=== PATIENT | female | born 1970 | race Caucasian/White ===

== ENCOUNTER 2023-12-10 12:17 | Inpatient (IN) ==
[2023-12-10 12:49] LABS: iSTAT Creatinine 0.8 mg/dl (0.6-1.3); iSTAT Hemoglobin 14.3 g/dl (12.0-16.0); iSTAT Ionized Calcium 1.09 mmol/l (1.12-1.32); iSTAT Potassium 3.8 mmol/L (3.3-5.0)
[2023-12-10 12:50] LABS: Basophils # (auto) 0.02 K/uL (0.00-0.20); Basophils % (auto) 0.2 %; Eosinophils # (auto) 0.01 K/uL (0.00-0.50); Eosinophils % (auto) 0.1 %; Hematocrit (blood only) 40.4 % (37.0-47.0); Hemoglobin 14.2 g/dl (12.0-16.0); Immature Granulocytes # (auto) 0.06 K/uL (0.01-0.20); Immature Granulocytes % (auto) 0.6 %; Lymphocytes # (auto) 2.09 K/uL (1.20-3.40); Lymphocytes % (auto) 22.1 %; Mean Corpuscular Hemoglobin 32.3 pg (25.0-34.0); Mean Corpuscular Hgb Conc 35.1 g/dL (32.0-36.0); Mean Platelet Volume 9.4 fL (9.4-12.4); Monocytes # (auto) 0.56 K/uL (0.11-0.59); Monocytes % (auto) 5.9 %; Neutrophils # (auto) 6.73 K/uL (1.40-6.50); Neutrophils % (auto) 71.1 %; Platelet Count 255 K/uL (130-400); RDW Coefficient of Variation 12.1 % (11.5-14.5); RDW Standard Deviation 40.9 fL (36.4-46.3); Red Blood Count 4.39 M/uL (4.20-5.40); White Blood Count 9.47 K/ul (4.8-10.8)
[2023-12-10 12:57] LABS: INR 0.9 (0.9-1.1); Partial Thromboplastin Ratio 0.8; Partial Thromboplastin Time 23 Seconds (21-31); Prothrombin Time 10.4 Seconds (9.0-12.0)
--- NOTE | 2023-12-10 13:05 | XRay Report ---
XR chest 1V portable HISTORY: 53 years-old Female Chest pain, nonspecific COMPARISON: None TECHNIQUE: AP view of the chest FINDINGS: Cardiomediastinal and hilar silhouettes are within normal limits. No pneumothorax, pleural effusion o r airspace consolidation. The bones appear grossly intact. IMPRESSION: No acute process. ACT 112: Negative or not required by law. The above report was generated using voice recognition software. It may contain grammatical, syntax o r spelling errors. Electronically signed by: Chandler Stark M.D. 12/10/2023 1:03 PM
[2023-12-10 13:13] LABS: Albumin Globulin Ratio 1.3 (0.9-2); Albumin Level 4.1 gm/dl (3.4-5.0); BUN Creatinine Ratio 27.7 (10-20); Bilirubin,Total 0.3 mg/dl (0.2-1.0); Calcium 9.1 mg/dl (8.6-10.3); Creatinine Clr Calc Pharmacy 82.6 ml/min; Est GFR (Non-African American) 81.1 ml/min; Globulin 3.1 gm/dl (2.5-4.0); Total Protein 7.2 gm/dl (6.0-8.3)
[2023-12-10] MEDS: HEPARIN SODIUM/DEXTROSE 25,000 UNITS/500 ML BAG IV SCH (13:18)
[2023-12-10] MEDS: HEPARIN SOD (PORCINE) 1000 UNIT/ML IV ONE (13:18)
[2023-12-10] MEDS ORDERED: HEPARIN SOD (PORCINE) 1000 UNIT/ML IV ONE (13:19)
[2023-12-10 13:20] LABS: Troponin I High Sensitivity 271.4 pg/ml (0-14)
[2023-12-10] MEDS: Heparin IV Adult Wt-Based Low-Dose w/ INITIAL Bolus Protocol IV STA (13:28)
[2023-12-10] MEDS ORDERED: STAT IV Infusion **Titration per Protocol STA (13:33)
--- NOTE | 2023-12-10 13:35 | History & Physical Report ---
Date of Service December 10, 2023 Assessment & Plan (1) NSTEMI (non-ST elevated myocardial infarction): (2) Dyslipidemia: (3) Lumbar radiculopathy: Plan This is a 51-year-old female with PMH of chronic low back pain who presents with chest pain starting earlier today. 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 NSTEMI Sudden onset CP at 10:30 AM with EKG changes in V1-V5 ST elevation that resolved after EMS gave aspirin and has not had recurrence of pain Repeat EKG in ED showing resolution of ST elevation, with age undetermined septal/anterior infarct pattern noted on follow-up serial EKGs Initial HS trop 270 -> 2,724 ED provider discussion with Dr. Walker who recommended IV heparin drip, nitro drip Discussed case with Dr. Lloyd, who evaluated patient in ED and read stat echo, revealing EF 25-30%, grade II diastolic dysfunction, no significant valvular disease Echo findings consistent with LAD territory injury versus Takotsubo syndrome, per discussion with Dr. Lloyd Continue aspirin, high intensity statin, IV heparin No beta pradeep as HR is already in the 60s, hold off on ACEi or ARB for now Transition from nitro drop to 0.5" Q6H Hold off on additional corticosteroids, adding PPI prophylaxis given recent prednisone Possible cardiac catheterization tomorrow, NPO after midnight Dyslipidemia Per chart review (patient denies knowledge of diagnosis in the past). Started on high dose statin as above Lumbar radiculopathy Continue prednisone 20mg as before. No additional steroids. Avoid nsaids while on IV heparin DVT Ppx: IV heparin Code status: FULL PCP: Yvette Dispo: Admitted to PCU Patient seen in collaboration with Dr. Babin. Please see addendum. I spent a total of 75 minutes coordinating, documenting, and providing care for this patient excluding time spent in the performance of separately billed services. History of Present Illness Chief Complaint: Chest pain Primary Care Provider: Mary Crawford MD This is a 51-year-old female with PMH of chronic low back pain who presents with chest pain starting earlier today. 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 Unsure how long the episode ended, but notes it did not completely resolve until 325 mg aspirin was given by EMS en route to hospital. Since arrival, pain has not recurred. Denies any personal known cardiac disease but notes it in her father and uncle. Long-term smoker over the past 35 years but consistently smoking 8 cigarettes a day. Not on any home medications besides a multivitamin and has been taking a lot of ibuprofen lately due to worsening back pain. Was started on prednisone 20 mg daily by her PCP 5 days ago. Chart review shows history of hyperlipidemia but patient denies it. Has never been on a statin. Denies any fever, chills, headache, chest pain currently, palpitations, shortness of breath, nausea, vomiting, abdominal pain, dysuria, diarrhea or constipation. Significant EKG changes noted with ST elevation in V1-V5 via picture provided from EMS, EKG improved after aspirin administration and by the time EKG was done in ED, ST elevations had resolved with presence of poor R wave progression consistent with undetermined septal/anterior infarct. Initial high-sensitivity troponin of 270 with repeat now pending. ER provider discussed with Dr. Walker, on-call for interventional cardiology, who recommends initiation of IV heparin drip as well as nitro drip. Dr. Lloyd to evaluate in ED, obtain echo and help determine level of care needed with plan for the afternoon now that patient is chest pain-free. Allergies Allergy/AdvReac Type Severity Reaction Status Date / Time tree and shrub pollen Allergy Unknown Verified 12/29/21 08:10 Home Medications Medication Instructions Recorded Confirmed Type ibuprofen 200 mg capsule 400 mg PO Q8H PRN pain/fever 12/29/21 12/10/23 History multivitamin 1 tab PO DAILY 12/29/21 12/10/23 History prednisone 20 mg tablet 20 mg PO UD 12/10/23 12/10/23 History Past Med/Surg History Medical History Seasonal allergies Lumbar radiculopathy Surgical History H/O: hysterectomy 2009 Family History Father Hypertension Mother Thyroid disease Other Heart disease Social History Smoking Status: Never smoker Tobacco Type: Cigarettes Cigarettes Per Day: 8; Second Hand Exposure: No; Do You Dip or Chew Tobacco: No; Tobacco Cessation Education Requested by Patient: No Hx Alcohol Use: No Hx Substance Use: No Preferred Language: [place]guill[place] Communication Ability: Effective 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 Physical Exam Physical Exam: General Appearance: WD/WN, vitals as above, NAD, sitting up in bed, pleasant, conversing easily Head: normocephalic, atraumatic Eyes: normal inspection, PERRL, conjunctivae normal, anicteric sclerae ENT: external ear and nose normal, oropharynx normal Neck: normal visual inspection, trachea midline, no thyromegaly Respiratory: normal respiratory effort, lungs clear to auscultation, no wheeze, rales, rhonchi. No accessory muscle use Cardiovascular: regular rate, rhythm, no murmur, normal peripheral pulses, no BLE edema. Vessels: no JVD Chest: normal inspection of chest Abdomen/GI: normal bowel sounds, soft, nontender, no hepatosplenomegaly Extremities/Musculoskeletal: no cyanosis or clubbing, extremities motor strength 5/5 Neurologic: PERRL, EOMI, accommodation nl, no face palsy, no dysarthria, CN's II-XI intact bilaterally and moves all extremities Psychiatric: A+Ox3, euthymic affect Skin: no rashes, normal color, warm/dry Results & Data Results & Data Vital Signs (Past 12 Hours) Vital Signs Temp Pulse Resp BP Pulse Ox O2 Del Method O2 Flow Rate 12/10/23 13:01 117/81 12/10/23 13:01 59 L 18 100 Room Air 12/10/23 13:00 61 17 98 12/10/23 12:48 57 L 12/10/23 12:34 100 Room Air 12/10/23 12:30 122/85 12/10/23 12:30 58 L 17 100 12/10/23 12:23 56 L 18 100 12/10/23 12:20 100 Room Air 0 12/10/23 12:20 36.6 C 61 17 122/85 100 Room Air Laboratory Results Short CBC 12/10/23 Range/Units 12:30 WBC 9.47 (4.8-10.8) K/ul Hgb 14.2 (12.0-16.0) g/dl Hct 40.4 (37.0-47.0) % Plt Count 255 (130-400) K/uL BMP 12/10/23 12:30 Sodium 134 L Potassium 4.0 Chloride 98 Carbon Dioxide 27 BUN 23 Creatinine 0.83 Glucose 124 H Calcium 9.1 Liver Function 12/10/23 Range/Units 12:30 Total Bilirubin 0.3 (0.2-1.0) mg/dl AST 22 (13-39) U/L ALT 26 (7-52) U/L Alkaline Phosphatase 68 (34-104) U/L Albumin 4.1 (3.4-5.0) gm/dl Diagnostic Findings Chest X-Ray 12/10/23 12:27 XR chest 1V portable HISTORY: 53 years-old Female Chest pain, nonspecific COMPARISON: None TECHNIQUE: AP view of the chest FINDINGS: Cardiomediastinal and hilar silhouettes are within normal limits. No pneumothorax, pleural effusion or airspace consolidation. The bones appear grossly intact. IMPRESSION: No acute process. ACT 112: Negative or not required by law. The above report was generated using voice recognition software. It may contain grammatical, syntax or spelling errors. Electronically signed by: Chandler Stark M.D. 12/10/2023 1:03 PM ECG Additional Comments: Significant EKG changes on initial noted with ST elevation in V1-V5 via picture provided from EMS, EKG improved after aspirin administration and by the time EKG was done in ED, ST elevations had resolved with presence of poor R wave progress ion consistent with undetermined septal/anterior infarct. Supervising Physician Co-Signing Physician Notes Pt was seen and examined by myself, Nora Babin MD on the day of service. Care was coordinated with Mohini Kruger PA-C. 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 Pain resolved at time of exam, she notes it went away after aspirin en route. EKG was initially suggestive of NH with ST elevation, trop elevation at 271 on arrival. EKG now with resolution of ST elevation AAOx3 on exam, no acute distress. RRR NSTEMI-stat echo, cardiology and interventional cardiology consults, appreciate recs. trend trops, interventional cardiology recommending nitro drip, consider ICU admission if nitro drip in use. Cardiac cath. Optimize risk factors- encourage smoking cessation, AM lipid panel, hgba1c. BP currently controlled. Hyperglycemia- glucose level 124, hgba1c r/o DM Otherwise as above. I spent a total [id number] coordinating, documenting, and providing care for this patient excluding time spent in the performance of separately billed services
[2023-12-10] MEDS ORDERED: NITROGLYCERIN/D5W 100MCG/ML 250 ML IV SCH (13:45)
--- NOTE | 2023-12-10 14:09 | Emergency Department Note ---
Impression & Plan NSTEMI (non-ST elevated myocardial infarction) ED Provider Note Provider: Gaetano Reeves MD DATE OF SERVICE: 12/10/2023 CHIEF COMPLAINT: Throat and chest and arm pain now resolved HISTORY OF PRESENT ILLNESS: Patient is a 53-year-old female quite healthy presenting here today via ambulance. Works at [employer]. While there developed some tightness of her throat and pain into her left arm and feeling faint. States she then began to feel tingling in all of her extremities and bit near syncopal but did not lose consciousness or fall. EMS activated. Upon BLS arrival received a dose of aspirin and symptoms resolved. Initial EKG completed around this time showed significant anterior ST segment elevations but these resolved and route here to the hospital. Discussion with the EMS team and route. Patient denies any symptoms upon arrival and states she feels fine and really just wanted to go back to work. Denies cardiac history. Significant family cardiac history is reported however. Denies difficulty breathing currently. Denies history of cardiac testing before. States she was told her triglycerides were little bit high but otherwise her cholesterol was fine. States she normally has somewhat lower blood pressure. Recently strained her upper back and has been on a steroid burst for the last several days. PAST MEDICAL HISTORY: As noted above MEDICATIONS: Reviewed currently on a prednisone burst FMH: History of cardiac disease in father side of the family SOCIAL HISTORY: Smoker, works at the [employer] PHYSICAL EXAM: GENERAL: alert and oriented in no acute distress on stretcher Head: normocephalic and atraumatic EYES: No injection, discharge or icterus. NECK: Trachea midline. ENT: Mucous membranes pink and moist. LUNGS: Airway patent. No retractions. Breath sounds clear with good air entry bilaterally. HEART: Regular rate and rhythm. No chest wall tenderness SKIN: Acyanotic, warm, dry, without rashes EXTREMITIES: Without swelling, tenderness or deformity NEUROLOGICAL: No focal deficits. No aphasia. No facial droop or slurred speech. Ambulatory. EK bpm sinus bradycardia. No PVC or PAC. No acute ST segment elevation or depression with a QTc of 372. CONTINUOUS CARDIAC MONITORING: was ordered and showed a heart rate of 50s to 60s bpm in normal sinus rhythm to sinus bradycardia Patient's laboratory studies and imaging reviewed. Differential includes Cardiac ischemia, aortic dissection, pulmonary embolism, pneumothorax, pneumonia, pericarditis, myocarditis, esophageal rupture, GERD, cholecystitis, pancreatitis, musculoskeletal, as well as other pathologies. IMPRESSION/MEDICAL DECISION MAKING: Patient well-appearing on arrival. EKG obtained here without significant abnormalities or STEMI. Reviewed prehospital EKG with significant anterior ST segment elevations that now have resolved and again the patient is now asymptomatic. Did discuss with interventional cardiology. Question if this was vasospasm. Not hypoxic here and again denying any symptoms. Doubt dissection. Blood work obtained. Mild troponin elevation upon arrival to 71. Already received full dose aspirin. Discussion with cardiology, heparin drip initiated. They also recommended some nitroglycerin which be trialed but will be cautious as she does report a history of some lower blood pressures and may not be able to tolerate this but likely again she is not experiencing any significant symptoms at this time. Discussed with the patient and recommendation for further cardiac evaluation and staying in the hospital and she was agreeable. Hospitalist team contacted. DIAGNOSIS: NSTEMI DISPOSITION: Hospitalist will evaluate Patient was agreeable with this plan. Critical Care I have personally spent 55 minutes of critical care time in the direct management of this patient. This includes bedside care, interpretation of diagnostic studies, and testing, discussion with consultants, patient, and family members, and other required patient management activities. These 55 minutes is in excess of all separately billable procedures. Past Med/Surg History Medical History Seasonal allergies Lumbar radiculopathy Surgical History H/O: hysterectomy 2009 Family History Father Hypertension Mother Thyroid disease Other Heart disease Social History Smoking Status: Never smoker Tobacco Type: Cigarettes Cigarettes Per Day: 8; Second Hand Exposure: No; Do You Dip or Chew Tobacco: No; Tobacco Cessation Education Requested by Patient: No Hx Alcohol Use: No Hx Substance Use: No Preferred Language: Thai Communication Ability: Effective Edm Operator Required: No Beliefs That Will Affect Care: None marital status: Single Current Living Situation: Spouse current occupational status: employed 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 How many Children do You have: 1 Other Information That Helps Us Care for You: No Feels Safe at Home: Yes Safety Concerns: Feels Safe At This Time Assistive Devices: None Allergies Allergies Allergy/AdvReac Type Severity Reaction Status Date / Time tree and shrub pollen Allergy Unknown Verified 12/29/21 08:10 Home Meds Home Medications Medication Instructions Recorded Confirmed ibuprofen 200 mg capsule 400 mg PO Q8H PRN pain/fever 12/29/21 12/10/23 multivitamin 1 tab PO DAILY 12/29/21 12/10/23 prednisone 20 mg tablet 20 mg PO UD 12/10/23 12/10/23 Results & Data (ED) Vital Signs Vital Signs - 24 hr 12/10/23 12:20 12/10/23 12:20 12/10/23 12:23 Temperature 36.6 C Temperature Source Oral Pulse Rate 61 56 L Pulse Rate [Apical] Pulse Rate from SpO2 Sensor 57 L Respiratory Rate 17 18 Respiratory Effort / Characteristics Non-Labored Spontaneous Respiratory Depth Normal Respiratory Pattern Regular Blood Pressure 122/85 Blood Pressure [Right Arm] Blood Pressure Mean 97 Blood Pressure Mean [Right Arm] Pulse Oximetry 100 100 100 Oxygen Delivery Method Room Air Room Air Oxygen Flow Rate 0 Sepsis Recent Fever Within 48 Hours No Sepsis New/Unexplained Change in Mental Status N/A Sepsis Action Taken by Nursing No Action Required 12/10/23 12:30 12/10/23 12:30 12/10/23 12:34 Temperature Temperature Source Pulse Rate 58 L Pulse Rate [Apical] Pulse Rate from SpO2 Sensor 58 L Respiratory Rate 17 Respiratory Effort / Characteristics Respiratory Depth Respiratory Pattern Blood Pressure 122/85 Blood Pressure [Right Arm] Blood Pressure Mean 90 Blood Pressure Mean [Right Arm] Pulse Oximetry 100 100 Oxygen Delivery Method Room Air Oxygen Flow Rate Sepsis Recent Fever Within 48 Hours Sepsis New/Unexplained Change in Mental Status Sepsis Action Taken by Nursing 12/10/23 12:48 12/10/23 13:00 12/10/23 13:01 Temperature Temperature Source Pulse Rate 57 L 61 59 L Pulse Rate [Apical] Pulse Rate from SpO2 Sensor 61 61 Respiratory Rate 17 18 Respiratory Effort / Characteristics Respiratory Depth Respiratory Pattern Blood Pressure Blood Pressure [Right Arm] Blood Pressure Mean Blood Pressure Mean [Right Arm] Pulse Oximetry 98 100 Oxygen Delivery Method Room Air Oxygen Flow Rate Sepsis Recent Fever Within 48 Hours Sepsis New/Unexplained Change in Mental Status Sepsis Action Taken by Nursing 12/10/23 13:01 12/10/23 14:32 Temperature Temperature Source Pulse Rate Pulse Rate [Apical] 53 L Pulse Rate from SpO2 Sensor Respiratory Rate 20 Respiratory Effort / Characteristics Non-Labored Respiratory Depth Normal Respiratory Pattern Blood Pressure 117/81 Blood Pressure [Right Arm] 131/80 Blood Pressure Mean 91 Blood Pressure Mean [Right Arm] 97 Pulse Oximetry 99 Oxygen Delivery Method Room Air Oxygen Flow Rate Sepsis Recent Fever Within 48 Hours Sepsis New/Unexplained Change in Mental Status Sepsis Action Taken by Nursing Laboratory Data 12/10/23 12:30 12/10/23 12:30 Lab Results 12/10/23 12/10/23 12/10/23 Range/Units 12:30 12:36 14:23 WBC 9.47 (4.8-10.8) K/ul RBC 4.39 (4.20-5.40) M/uL Hgb 14.2 (12.0-16.0) g/dl POC Hgb 14.3 (12.0-16.0) g/dl Hct 40.4 (37.0-47.0) % POC Hct 42 (37-47) % MCV 92.0 (80.0-100.0) fL MCH 32.3 (25.0-34.0) pg MCHC 35.1 (32.0-36.0) g/dL RDW Std Deviation 40.9 (36.4-46.3) fL RDW Coeff of John 12.1 (11.5-14.5) % Plt Count 255 (130-400) K/uL MPV 9.4 (9.4-12.4) fL Immature Gran % (Auto) 0.6 % Neut % (Auto) 71.1 % Lymph % (Auto) 22.1 % [place] % (Auto) 5.9 % Eos % (Auto) 0.1 % Baso % (Auto) 0.2 % Neut # (Auto) 6.73 H (1.40-6.50) K/uL Lymph # (Auto) 2.09 (1.20-3.40) K/uL [place] # (Auto) 0.56 (0.11-0.59) K/uL Eos # (Auto) 0.01 (0.00-0.50) K/uL Baso # (Auto) 0.02 (0.00-0.20) K/uL Immature Gran # (Auto) 0.06 (0.01-0.20) K/uL PT 10.4 (9.0-12.0) Seconds INR 0.9 (0.9-1.1) APTT 23 (21-31) Seconds PTT Ratio 0.8 POC Sodium 136 (135-144) mmol/L Sodium 134 L (136-145) mmol/L POC Potassium 3.8 (3.3-5.0) mmol/L Potassium 4.0 (3.5-5.1) mmol/L POC Chloride 98 L (101-112) mmol/L Chloride 98 (98-107) mmol/L Carbon Dioxide 27 (21-32) mmol/L POC Total CO2 28 (24-31) mmol/L Anion Gap 9 (3-11) POC Anion Gap 15.0 L (16-25) mmol/L POC BUN 23 H (7-18) mg/dl BUN 23 (6-23) mg/dl Creatinine 0.83 (0.6-1.2) mg/dl POC Creatinine 0.8 (0.6-1.3) mg/dl Est Cr Clr Drug Dosing 82.6 ml/min Est GFR ( Amer) 94.0 ml/min Est GFR (Non-Af Amer) 81.1 ml/min BUN/Creatinine Ratio 27.7 H (10-20) Glucose 124 H (70-99(Fasting)) mg/dl POC Glucose (other) 127 H (70-99) mg/dl Calcium 9.1 (8.6-10.3) mg/dl POC Ioniz Calcium Chasidy 1.09 L (1.12-1.32) mmol/l Total Bilirubin 0.3 (0.2-1.0) mg/dl AST 22 (13-39) U/L ALT 26 (7-52) U/L Alkaline Phosphatase 68 (34-104) U/L Troponin I High Sens 271.4 H* 2724.2 H* D (0-14) pg/ml Total Protein 7.2 (6.0-8.3) gm/dl Albumin 4.1 (3.4-5.0) gm/dl Globulin 3.1 (2.5-4.0) gm/dl Albumin/Globulin Ratio 1.3 (0.9-2) Lipase 18 (11-82) U/L Administered Medications Acetaminophen (Acetaminophen 500 Mg Tab) 1,000 mg PO Q8H PRN PRN Reason: Pain or Fever Stop: 01/09/24 17:19 Last Admin: 12/10/23 17:34 Dose: 1,000 mg Documented By: NERY Heparin Sodium/Dextrose (Heparin Sodium/Dextrose) 25,000 units in 500 mls @ 16 mls/hr IV .Q24H [facility]; Protocol Stop: 12/11/23 04:00 Last Admin: 12/10/23 13:18 Dose: 800 units/hr, 16 mls/hr Documented By: ARPIT Co-signed By: NERY Pantoprazole Sodium 40 mg/ (Syringe) 10 mls @ 5 mls/min IV Q12H [facility] Stop: 01/09/24 16:59 Last Admin: 12/10/23 17:21 Dose: 5 mls/min Documented By: NERY Nitroglycerin (Nitroglycerin 2% Ointment 30gm Tube) 0.5 inch EXT Q6H [facility] Stop: 01/09/24 15:29 Last Admin: 12/10/23 15:51 Dose: 0.5 inch Documented By: NERY Discontinued Medications Heparin Sodium (Porcine) (Heparin Sod (Porcine) 1000 Unit/Ml) 4,000 units IV NOW ONE Stop: 12/10/23 13:20 Last Admin: 12/10/23 13:18 Dose: 4,000 units Documented By: ARPIT Co-signed By: NERY Heparin Sodium/Dextrose (Heparin Iv Adult Wt-Based Low-Dose W/ Initial Bolus Protocol) 1 each IV NOW STA; Protocol Stop: 12/10/23 13:05 Last Admin: 12/10/23 13:28 Dose: Not Given Documented By: ARPIT Nitroglycerin/Dextrose (Nitroglycerin/D5w 100 Mcg/Ml) 250 mls @ 12 mls/hr IV .[id number] [facility]; Protocol Stop: 01/09/24 14:14 Last Admin: 12/10/23 15:23 Dose: Not Given Documented By: NERY Lidocaine (Lidocaine 5% 1 Patch) 1 patch TD NOW STA Stop: 12/10/23 17:21 Last Admin: 12/10/23 17:34 Dose: 1 patch Documented By: NERY Imaging Data Radiologist's Impression: Chest X-Ray 12/10/23 12:27 XR chest 1V portable HISTORY: 53 years-old Female Chest pain, nonspecific COMPARISON: None TECHNIQUE: AP view of the chest FINDINGS: Cardiomediastinal and hilar silhouettes are within normal limits. No pneumothorax, pleural effusion or airspace consolidation. The bones appear grossly intact. IMPRESSION: No acute process. ACT 112: Negative or not required by law. The above report was generated using voice recognition software. It may contain grammatical, syntax or spelling errors. Electronically signed by: Chandler Stark M.D. 12/10/2023 1:03 PM Discharge Plan Visit Data Chief Complaint: Chest Pain ED Provider: Gaetano Reeves Discharge Problem: NSTEMI (non-ST elevated myocardial infarction) Patient Disposition: Admitted As Inpatient Discharge Instructions Interventions: ED Discharge Assessment Last Done: 12/10/23 16:56
[2023-12-10] MEDS: NITROGLYCERIN/D5W 100MCG/ML 250 ML IV SCH (15:23)
[2023-12-10] MEDS: NITROGLYCERIN 2% OINTMENT 30GM TUBE EXT SCH (15:51)
--- NOTE | 2023-12-10 15:58 | Cardiology Consultation ---
Date of Consultation December 10, 2023 Assessment & Plan (1) NSTEMI (non-ST elevated myocardial infarction): (2) Dyslipidemia: (3) Lumbar radiculopathy: Plan Bedside echocardiogram performed 12/10/2023 at the time of my assessment and interpreted independently with summary as follows: The study was technically adequate. There is normal left ventricular wall thickness. There is a large sized apical, septal, and anteroseptal wall motion abnormality with hypokinesis to akinesis of the segments.There is relative sparing of the basal segments that contract normally. Left ventricular systolic function is severely reduced. The LV Ejection Fraction = 25-30%. There is no LV apical mural thrombus. Diastolic dysfunction, Grade II (pseudonormalization pattern). There is no significant valvular disease. Patient presents with transient chest discomfort, symptoms less than 1 hour, initially was found to have anterior/lateral ST segment elevation upon arrival of EMS. Symptoms resolved spontaneously after receiving aspirin and reassurance. ST segment elevation has resolved, with age undetermined septal/anterior infarct pattern noted on follow-up serial EKG tracings. Patient currently hemodynamically stable, no recurrence of chest discomfort. Is now on unfractionated heparin. Initial high-sensitivity troponin minimally elevated at 271.4 PG per mL, and is trended up to 2,724.2 PG per mL. Bedside echocardiogram consistent with LAD territory injury versus catecholamine induced cardiomyopathy pattern (Takotsubo syndrome). At this time we will continue medical therapy including aspirin, unfractionated heparin, high intensity statin therapy. Start topical nitroglycerin 0.5 inches to anterior chest wall every 6 hours. Hold off on additional corticosteroids. Consider GI prophylaxis with a proton pump inhibitor given recent prednisone exposure. No beta pradeep as heart rate is already in the 60s. Hold off on angiotensin receptor pradeep or JOSE LUIS inhibitor for now. Hold off on emergent cardiac catheterization for now given improvement in her EKG and symptoms, however anticipate need for invasive coronary angiography for definitive evaluation during this hospital stay. Repeat EKG as needed for symptoms and again in am. Advance diet now. NPO after midnight. Case discussed with Dr. Reeves of emergency medicine, Dr Walker of interventional cardiology, and Mohini Kruger PA-C of the [facility] service for the purpose of coordination of care. I spent a total of 65 minutes on the date of service in preparation, delivery, and documentation of the care provided to this patient, excluding any time spent in the performance of separately billed services. Lorena Lloyd DO History of Present Illness History of Present Illness Monserrat Andujar is a 53 year old female seen in cardiology follow up per the request of Mohini Kruger PA-C for the evaluation of chest pain and an abnormal EKG. Patient is seen in the emergency department, room B11B. Her Morales accompanies her at the bedside. Patient states that her recent history dates back to last week when she had recurrence of her usual low back pain that radiates down the buttocks bila terally into her legs consistent with her previous history of lumbar radiculopathy. She had previously had an MRI of the lumbar spine as an outpatient in Jan, 2022 revealing diffuse disc bulge at the L5-S1 level. She states that she had an acute exacerbation of her lumbar radiculopathy after lifting her 65 pound dog. She was placed on a tapering course of prednisone prescribed by primary care on 12/04/2023 and she notes interval improvement over the last 4 days or so. This morning she states that she was back to her usual state of health. When her back is not bothering her she typically walks a distance of 2 miles. Today she walked a distance of a mile and felt well. She had breakfast and got ready to go to work. 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 She states that between 10:30 AM and 10:45 AM she had abrupt onset of discomfort in her neck that subsequently progressed to a numbness in her left arm and then chest pain and bilateral arm discomfort. She also had a transient sensation of numbness in her feet. She describes feeling progressively anxious when she had the symptoms. EMS was summoned and initial prehospital EKG was performed at 11:43 AM that revealed sinus bradycardia at [address] segment elevation in the anterior precordial leads V1 to V5 as well as lead I and aVL with reciprocal ST segment depression in the inferior leads III and aVF. The patient states that she received aspirin 81 mg x 4 tablets which she chewed just after the EKG was performed and she felt better instantaneously. Repeat prehospital EKG performed at 1150 reveals resolution of the previously noted ST segment elevation and depression with findings of age-indeterminate septal infarct pattern with Q waves in lead V2 and poor R wave progression in leads V3 V4 but otherwise EKG had normalized. The patient has had serial repeat tracings performed including a formal tracing performed in the hospital at 12:20 PM with no residual ST segment elevation. At the time my assessment the patient was completely comfortable in the emergency department. Repeat tracing performed at 1545 reveals ongoing sinus bradycardia with resolution of the ST segment elevation, ongoing poor R wave progression noted consistent with age undetermined septal/anterior infarct, and patient has now developed T wave changes in lead V3. Family History: She states her father is alive at the age of 70 with a history of congestive heart failure. 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 [employer] She smokes 7 to 8 cigarettes/day Allergies Allergy/AdvReac Type Severity Reaction Status Date / Time tree and shrub pollen Allergy Unknown Verified 12/29/21 08:10 Home Medications Medication Instructions Recorded Confirmed Type ibuprofen 200 mg capsule 400 mg PO Q8H PRN pain/fever 12/29/21 12/10/23 History multivitamin 1 tab PO DAILY 12/29/21 12/10/23 History prednisone 20 mg tablet 20 mg PO UD 12/10/23 12/10/23 History Patient History Medical History Seasonal allergies Lumbar radiculopathy Surgical History H/O: hysterectomy 2008 Family History Father Hypertension Mother Thyroid disease Other Heart disease Social History Smoking Status: Current every day smoker Tobacco Type: Cigarettes Cigarettes Per Day: 8; Hx Alcohol Use: Yes Alcohol Intake Frequency: Monthly or Less Hx Substance Use: No marital status: Single Current Living Situation: Significant Other current occupational status: employed 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 How many Children do You have: 1 Feels Safe at Home: Yes Review of Systems Review of Systems: All systems reviewed & are unremarkable except as noted in HPI & below Physical Exam Constitutional: WD/WN, vitals as above Respiratory: normal respiratory effort, lungs clear to auscultation Cardiovascular: RRR, no murmur, no edema Gastrointestinal (Abdomen): normal bowel sounds, soft, nontender, no hepatosplenomegaly Neurologic: PERRL, EOMI, accommodation nl, no face palsy, no dysarthria Results & Data Vital Signs (Past 12 Hours) Vital Signs Temp Pulse Pulse Resp BP BP Pulse Ox 12/10/23 14:32 53 L 20 131/80 99 12/10/23 13:01 117/81 12/10/23 13:01 59 L 18 100 12/10/23 13:00 61 17 98 12/10/23 12:48 57 L 12/10/23 12:34 100 12/10/23 12:30 122/85 12/10/23 12:30 58 L 17 100 12/10/23 12:23 56 L 18 100 12/10/23 12:20 100 12/10/23 12:20 36.6 C 61 17 122/85 100 O2 Del Method O2 Flow Rate 12/10/23 14:32 Room Air 12/10/23 13:01 12/10/23 13:01 Room Air 12/10/23 13:00 12/10/23 12:48 12/10/23 12:34 Room Air 12/10/23 12:30 12/10/23 12:30 12/10/23 12:23 12/10/23 12:20 Room Air 0 12/10/23 12:20 Room Air Laboratory Results Cardiac Enzymes 12/10/23 12/10/23 Range/Units 12:30 14:23 AST 22 (13-39) U/L Troponin I High Sens 271.4 H* 2724.2 H* D (0-14) pg/ml Coagulation 12/10/23 Range/Units 12:30 PT 10.4 (9.0-12.0) Seconds APTT 23 (21-31) Seconds CBC 12/10/23 Range/Units 12:30 WBC 9.47 (4.8-10.8) K/ul RBC 4.39 (4.20-5.40) M/uL Hgb 14.2 (12.0-16.0) g/dl Hct 40.4 (37.0-47.0) % Plt Count 255 (130-400) K/uL Neut # (Auto) 6.73 H (1.40-6.50) K/uL Lymph # (Auto) 2.09 (1.20-3.40) K/uL [place] # (Auto) 0.56 (0.11-0.59) K/uL Eos # (Auto) 0.01 (0.00-0.50) K/uL Baso # (Auto) 0.02 (0.00-0.20) K/uL Comprehensive Metabolic Panel 12/10/23 Range/Units 12:30 Sodium 134 L (136-145) mmol/L Potassium 4.0 (3.5-5.1) mmol/L Chloride 98 (98-107) mmol/L Carbon Dioxide 27 (21-32) mmol/L BUN 23 (6-23) mg/dl Creatinine 0.83 (0.6-1.2) mg/dl Glucose 124 H (70-99(Fasting)) mg/dl Calcium 9.1 (8.6-10.3) mg/dl AST 22 (13-39) U/L ALT 26 (7-52) U/L Alkaline Phosphatase 68 (34-104) U/L Total Protein 7.2 (6.0-8.3) gm/dl Albumin 4.1 (3.4-5.0) gm/dl Intake and Output 12/10/23 12/10/23 12/10/23 06:59 14:59 22:59 Other: Weight 79.4 kg Weight Measurement Method Built in [facility] Patient Weight 12/11/23 06:59 Weight 79.4 kg Diagnostic Findings Per review of her outpatient chart the patient has not had any previous echocardiogram or EKG studies prior to today. A fasting lipid panel was performed on 07/24/2023: Total cholesterol 252 Triglycerides 146 HDL 55 LDL cholesterol 168 Fasting glucose 98 mg/dL at that time
[2023-12-10] MEDS ORDERED: ONDANSETRON INJ 2 MG/ML 2 ML VIAL IV PRN (16:58)
[2023-12-10] MEDS ORDERED: POLYETHYLENE (MIRALAX) 17 GM PACK PO PRN (16:58)
[2023-12-10] MEDS: PANTOprazole 40 MG in SYRINGE 0 ML IV SCH (17:21)
[2023-12-10] MEDS: ACETAMINOPHEN 500 MG TAB PO PRN (17:34)
[2023-12-10] MEDS: LIDOCAINE 5% 1 PATCH TD STA (17:34)
--- NOTE | 2023-12-10 18:23 | Communication Note ---
Date of Service: December 10, 2023 Hold heparin at 4 AM on 12/11/2023 for anticipated cardiac catheterization. Patient currently scheduled to be the second case on the morning of 12/11/2023. Mayra Lloyd DO
--- OUTSIDE RECORDS SUMMARY | 2023-12-10 19:38 | External Medical Summary | Summary of Care ---
Author Name Unknown Organization [facility] Address [address] [place] [address] Phone [phone] Care Team Providers Care Automation Consultant Name Role Phone Mary Crawford MD Primary Care Provide r Reason for Visit * Reason Comments Outpatient Testing Encounter Details Date Type Department Care Team (Late st Contact Info) Description 07/24/2023 7:30 AM EST Laboratory Laboratory [address] [place] [phone] [place] [id number] [employer]social Other*[id number]; Lipid screening; Need for hepatitis C screening test; Encounter for screening examination for impaired glucose regulation and diabetes mellitus Allergies No known active allergiesdocumented as of this encounter (statuses as of 07/24/2023) Medications Medication Sig Dispensed Refills Start Date End Date Status Multiple Vitamin (MULTIVITAMINS) Capsule Take 1 Capsule by mouth in the morning. 0 02/18/2015 Active documented as of this encounter (statuses as of 07/24/2023) Active Problems Problem Noted Date Diagnosed Date Lumbar radiculitis 04/16/2018 Herniated nucleus pulposus, L5-S1, right 018 documented as of this encounter (statuses as of 07/24/2023) Resolved Problems Problem Noted Date Diagnosed Date Resolved Date Routine medical exam 12/01/2011 019 documented as of this encounter (statuses as of 07/24/2023) Immunizations Name Administration Dates Next Due TDAP (age 10 and older)(Boostrix) 06/25/2020 documented as of this encounter Social History Tobacco Use Types Packs/Day Years Used Date Smoking Tobacco: Never Smokeless Tobacco: Never Alcohol Use Standard Drinks/Week Comments Yes 0 (1 standard drink = 0.6 oz pur e alcohol) rare PHQ-2 Answer Date Recorded PHQ Adult Total Score 0 06/01/2023 Hunger Vital Sign Answer Date Recorded Within the past 12 months, y ou worried that your food would run out before you got the money to buy more. Never true 06/01/20 23 Within the past 12 months, t he food you bought just didn't last and you didn't have money to get more. Never true 06/01/2023 Sex and Gender Information Value Date Recorded Sex Assigned at Female 05/25/2022 7:53 PM EDT Gender Identity Female 05/25/2022 7:53 PM EDT Sexual Orientation Straight 05/25/2022 7: 53 PM EDT Job Start Date Occupation Industry Not on file Not on file Not on file documented as of this encounter Plan of Treatment Upcoming Encounters Date Type Department Care Team (Latest Contact Info) Description 10/22/2023 9:30 AM EST Hospital Encounter [facility]O [facility], Endoscopy Room [facility] [address] [place] [phone] Leidy Shaw, DO [address] [place] [phone] 10/22/2023 9:30 AM EST - 10/22/2023 10:00 AM EST Surgery ENDO [facility], Endoscopy Room [facility] [address] [place] [phone] Leidy Shaw, DO [address] [place] [id number] COLONOSCOPY FLEXIBLE PROXIMAL DIAGNOSTIC 06/13/2024 8:20 AM EDT Office Visit Family [address] [phone] Mary Crawford MD [address] [place] [address] [place] [id number] 07/07/2024 9:00 AM EDT Imaging Radiology [address] [place] [id number] Pending Results Name Type Priority Associated Diagnoses Date /Time MYCODE SUBSEQUENT ADULT Lab Routine [employer] Other*[id number] 07/24/2023 7:31 AM EST LIPID PANEL WITH DIRECT LDL IF TG IS HIGH Lab Routine Lipid screening 07/24/2023 7:31 AM EST HEPATITIS C ANTIBODY SCREEN WITH PROGRESSION TO HEPATITIS C RNA QUANTITATIVE Lab Routine Need for hepatitis C screening test 07/24/2023 7:31 AM EST GLUCOSE, FASTING PLASMA Lab Routine Encounter for screening examination for impaired glucose regulation and diabetes mellitus 07/24/2023 7:31 AM EST MYCODE SST1 Lab Routine [employer] Other*[id number] 07/24/2023 7:31 AM EST MYCODE SST2 Lab Routine [employer] Other*[id number] 07/24/2023 7:31 AM EST HEPATITIS C ANTIBODY Lab Routine Need for hepatitis C screening test 07/24/2023 7:31 AM EST HEPATITIS C RNA ADD ON Lab Routine Need for hepatitis C screening test 07/24/2023 7:31 AM EST Scheduled Procedures Name Priority Associated Diagnoses Date/Ti me COLONOSCOPY FLEXIBLE PROXIMAL DIAGNOSTIC Special screening for malignant neoplasms, colon 10/22/2023 9:30 AM EST Health Maintenance Due Date Last Done Comments Hepatitis B (1 of 3 - 3-dose series) 1970 COVID-19 Vaccine (#1) 05/25/1972 Hepatitis C Screening 11/22/1989 Cologuard 11/22/2016 Colonoscopy 11/22/2016 Colorectal Cancer Screening 11/22/2016 Fecal Occult Blood Test 11/22/2016 Sigmoidoscopy 11/22/2016 Zoster Vaccines (1 of 2) 11/22/2021 Influenza Vaccine (FLU shot) (#1) 2023 Diabetes Screening 05/20/2023 05/20/2020, 0 04/18/2017, 04/02/2015, Additional history exists Depression Screening 06/01/2024 06/01/2023 Mammogram 06/25/2024 06/25/2023, 10/0 02/2022, 06/08/2021, Additional history exists Lipid Panel 08/05/2026 08/05/2021, 05/11, 04/02/2015, Additional history exists DTaP,Tdap,and Td Vaccines (2 - Td or Tdap) 06/25/2030 06/25/2020 GARDASIL-HPV IMMUNIZATION SERIES Aged Out No longer eligible based on patient's age to complete this topic MENINGOCOCCAL (MENACTRA/MENVEO) Aged Out No longer eligible based on patient's age to complete this topic Pneumococcal Vaccine: Pediatrics (0 to 5 Years) and At-Risk Patients (6 to 64 Years) Aged Out No longer eligible based on patient's age to complete this topic documented as of this encounter Medical Devices Not on filedocumented as of this encounter Visit Diagnoses Diagnosis MyCode [employer] Other*[id number] Lipid screening Screening for lipoid disorders Need for hepatitis C screening test Special screening examination for other specified viral diseases Encounter for screening examination for impaired glucose regulation and diabetes mellitus Special screening for malignant neoplasms, colon documented in this encounter Care Teams Automation Consultant Relationship Specialty Start Date End Date Mary Crawford MD PCP - General Family Medicine 02/22/16 documented as of this encounter
--- OUTSIDE RECORDS SUMMARY | 2023-12-10 19:38 | External Medical Summary | Summary of Care ---
Author Name Unknown Organization [facility] Address [address] [place] [address] Phone [phone] Care Team Providers Care Benefits Manager Name Role Phone Mary Crawford MD Primary Care Provide r Reason for Visit * Auth/Cert Specialty Diagnoses / Procedures Referred By Emanuel cam Referred To Contact Diagnoses Special screening for malignant neoplasms, colon Special screening for malignant neoplasms, colon [Z12.11] Procedures COLONOSCOPY, DIAGNOSTIC (RECTUM) COLONOSCOPY FLEXIBLE PROXIMAL DIAGNOSTIC Referral ID Status Reason Start Date Expiration Date Visits Re quested Visits Authorized [id number] Encounter Details Date Type Department Care Team (Latest Contact Info) Description 10/22/2023 8:48 AM EST - 10/22/2023 10:25 AM [facility] Hospital Encounter ENDO [facility], Endoscopy Room [facility] [address] [place] [phone] Hayde Carrasco MD [address] [facility] [place] [address] Colonoscopy Discharge Disposition: Home - Self Care Allergies No known active allergiesdocumented as of this encounter (statuses as of 10/22/2023) Medications Medication Sig Dispensed Refills Start Date End Date Status Multiple Vitamin (MULTIVITAMINS) Capsule Take 1 Capsule by mouth in the morning. 0 02/18/2015 Active documented as of this encounter (statuses as of 10/22/2023) Active Problems Problem Noted Date Diagnosed Date Hyperlipidemia LDL goal <100 07/24/2023 Overview: LDL 168 Lumbar radiculitis 04/16/2018 Herniated nucleus pulposus, L5-S1, right 018 documented as of this encounter (statuses as of 10/22/2023) Resolved Problems Problem Noted Date Diagnosed Date Resolved Date Routine medical exam 12/01/2011 019 documented as of this encounter (statuses as of 10/22/2023) Immunizations Name Administration Dates Next Due TDAP [...] on file documented as of this encounter Last Filed Vital Signs Vital Sign Reading Time Taken Comments Blood Pressure 112/68 10/22/2023 10:15 AM EST Pulse 65 10/22/2023 10:15 AM EST Temperature 36.7 C (98 F) 10/22/2023 10:15 AM EST Respiratory Rate 18 10/22/2023 10:15 AM EST Oxygen Saturation 98% 10/22/2023 10:15 AM EST Inhaled Oxygen Concentration - - Weight 73.9 kg (163 lb) 10/11/2023 11:21 AM EST Height 165.1 cm (5' 5") 10/11/2023 11:21 AM EST Body Mass Index 27.12 10/11/2023 11:21 AM EST documented in this encounter H&P Notes * Hayde Carrasco MD - 10/22/2023 9:12 AM EST Endoscopy Pre-Procedure Assessment Name: Monserrat Andujar Date: 10/22/2023 Time: 9:12 AM Procedure(s): Colonoscopy; with Indication(s) of average risk screening Endoscopy Pre-Procedure Assessment: Prior to the procedure, the patient was identified. The patient's history, medications and allergies were reviewed as per the Anesthesia Assessment. The patient is competent. The risks and benefits of the proposed procedure and the planned sedation were discussed with the patient. All questions were answered and informed consent for the procedure was obtained. BP 93/79 | Pulse 60 | Temp 36.4 C (97.6 F) (Tympanic) | Resp 16 | Ht 1.651 m (5' 5") | Wt 73.9 kg (163 lb) | SpO2 100% | BMI 27.12 kg/m | BSA 1.84 m Review of patient's allergies indicates: No Known Allergies Prior to Admission medications Medication Sig Last Dose Discont. Sulfamethoxazole-Trimethoprim 800-160 MG Oral Tablet (Bactrim DS) Take 1 Tablet by mouth in the morning and 1 Tablet before bedtime. Do all this for 3 days. Until gone. Multiple Vitamin (MULTIVITAMINS) Capsule Take 1 Capsule by mouth in the morning. Physical Exam: Mental Status Examination: alert and oriented. Airway Examination: normal oropharyngeal airway and neck mobility. Respiratory Examination: clear to auscultation. CV Examination: Regular rate and rythm, no murmurs. ASA Grade: II - A patient with mild systemic disease. After reviewing the risks and benefits, the patient was deemed in satisfactory condition to undergothe procedure. The anesthesia plan was to use sedation. Patient was explained in detail regarding risks, benefits, limitations and alternatives of the above endoscopic procedure. Risks of intravenous sedation used for procedure were also explained. Risks include, but not limited to perforation, bleeding, infection, respiratory distress, cardiac arrest and . Risk of acute pancreatitis and necrosis if ERCP is done. Patient is also aware about the possibility of missed lesion. Patient's questions were answered. The patient verbalized understandingthe information and agreed to undergo the procedure. Discussed with the patient that he/she is at an explicit higher risk for complications in comparison to other patients Hayde Carrasco MD 10/22/2023 documented in this encounter Procedure Notes * Mary Crawford MD - 10/22/2023 9:13 AM ESTAssociated Order(s): COLONOSCOPY [facility] Patient Name: Monserrat Andujar Procedure Date: 10/22/2023 9:13 AM Date of : 1970 Admit Type: Outpatient Note Status: Finalized Date of : 1970 Admit Type: Outpatient Age: 52 Room: Endo 3 Gender: Female Note Status: Finalized Procedure: Colonoscopy Indications: Screening for colorectal malignant neoplasm Providers: Hayde Carrasco MD (Doctor), Yovani Edmond RN Referring MD: Mary Crawford MD (Referring MD) Medicines: Propofol per Anesthesia Complications: No immediate complications. Procedure: Pre-Anesthesia Assessment: - Prior to the procedure, a History and Physical was performed, and patient medications, allergies and sensitivities were reviewed. The patient's tolerance of previous anesthesia was reviewed. - The risks and benefits of the procedure and the sedation options and risks were discussed with the patient. All questions were answered and informed consent was obtained. - Patient identification and proposed procedure were verified prior to the procedure by the physician and the nurse. The procedure was verified in the procedure room. - Pre-procedure physical examination revealed no contraindications to sedation. After I obtained informed consent, the scope was passed under direct vision. All instruments were visually inspected immediately before and after removal from the patient to ensure they are fully intact. Throughout the procedure, the patient's blood pressure, pulse, and oxygen saturations were monitored continuously. The [id number] Colonoscope ([id number]) was introduced through the anus and advanced to the terminal ileum. The colonoscopy was performed without difficulty. The patient tolerated the procedure well. The quality of the bowel preparation was good. The terminal ileum, ileocecal valve, appendiceal orifice, and rectum were photographed. Findings & Specimens: The perianal and digital rectal examinations were normal. The terminal ileum appeared normal. A 6 mm polyp was found in the ascending colon. The polyp was sessile. The polyp was removed with a cold snare. Resection and retrieval were complete. Verification of patient identification for the specimen was done by the physician and nurse using the patient's name and date. The pathology specimenwas placed into Bottle A. A 6 mm polyp was found in the descending colon. The polyp was sessile. The polyp was removed with a cold snare. Resection and retrieval were complete. The pathology specimen was placed into Bottle B. Non-bleeding internal hemorrhoids were found during retroflexion. The hemorrhoids were small. Impression: - The examined portion of the ileum was normal. - One 6 mm polyp in the ascending colon, removed with a cold snare. Resected and retrieved. - One 6 mm polyp in the descending colon, removed with a cold snare. Resected and retrieved. - Non-bleeding internal hemorrhoids. Recommendation: - Discharge patient to home. - Await pathology results. - Repeat colonoscopy in 5 years for surveillance. - Return to referring physician. Hayde Carrasco MD 10/22/2023 9:54:17 AM This report has been signed electronically. documented in this encounter Nursing Notes * Ashleigh Abraham RN - 10/22/2023 10:21 AM EST Comfortable, at the bedside Patient is alert, pain free, and tolerating po fluids prior to discharge. Patient has been visited by Dr. Carrasco. Patient has received and demonstrates understanding of discharge instructions. Patient ambulates to private auto accompanied by endo staff. * Yovani Edmond RN - 10/22/2023 9:55 AM EST See anesthesia record for medication administered during procedure. Yovani Edmond RN Specimen(s) and location(s) verified with physician post procedure 9:55 AM Yovani Edmond RN Pre cleaning of scope at the bedside started by emanations analysis technician. Mid abdominal pressure given per Dr. Carrasco to assist with scope advancement. Pt tolerated well * Vinay Torres RN - 10/22/2023 9:02 AM EST Patient does not meet criteria for testing. s/p hysterectomy. * Vinay Torres RN - 10/22/2023 9:01 AM EST The following pt discharge instructions reviewed with pt prior to prodedure: No driving today. No alcohol today. No signing of legal documents. Rest as much as possible today and can return to normal activities tomorrow. No operating any heavy equipment today. Diet as tolerated. Pt verbalized understanding. documented in this encounter Plan of Treatment Upcoming Encounters Date Type Department Care Team (Late st Contact Info) Description 06/13/2024 8:20 AM EDT Office Visit Family Medicine [address] [place] [phone] Mary Crawford MD [address] [place] [address] [place] [address] 07/07/2024 9:00 AM EDT Imaging Radiology [address] [place] [address] Pending Results Name Type Priority Associated Diagnoses Date /Time SURGICAL PATHOLOGY Pathology Routine Special screening for malignant neoplasms, colon 10/22/2023 9:56 AM EST Scheduled Orders Name Type Priority Associated Diagnoses Orde r Schedule SURGICAL PATHOLOGY Pathology Routine Special screening for malignant neoplasms, colon Release Upon Ordering for 1 Occurrences starting 10/22/2023, 1 completed Scheduled Procedures Name Priority Associated Diagnoses Date/Ti me COLONOSCOPY FLEXIBLE PROXIMAL DIAGNOSTIC Special screening for malignant neoplasms, colon 10/22/2023 9:28 AM EST Health Maintenance Due Date Last Done Comments Hepatitis B (1 of 3 - 3-dose series) 1970 COVID-19 Vaccine (#1) 05/25/1972 Cologuard 11/22/2016 Fecal Occult Blood Test 11/22/2016 Sigmoidoscopy 11/22/2016 Zoster Vaccines (1 of 2) 11/22/2021 Influenza Vaccine (FLU shot) (#1) 2023 Depression Screening 06/01/2024 06/01/2023 Mammogram 06/25/2024 06/25/2023, 10/0 02/2022, 06/08/2021, Additional history exists Diabetes Screening 07/24/2026 07/24/2023, 0 05/20/2020, 04/18/2017, Additional history exists Lipid Panel 07/24/2028 07/24/2023, 1102/2021, 05/20/2020, Additional history exists DTaP,Tdap,and Td Vaccines (2 - Td or Tdap) 06/25/2030 06/25/2020 Colonoscopy 10/22/2033 10/22/2023 Colorectal Cancer Screening 10/22/2033 GARDASIL-HPV IMMUNIZATION SERIES Aged Out No longer [...] Not on filedocumented as of this encounter Procedures Procedure Name Priority Date/Time Associated Diagnosis Comments COLONOSCOPY 10/22/2023 9:13 AM EST documented in this encounter Results * COLONOSCOPY (10/22/2023 9:13 AM EST) 10/22/2023 9:13 AM EST Narrative Procedure Note Mary Crawford MD - 10/22/2023 9:13 AM EST [facility] Patient Name: Monserrat Andujar Procedure Date: 10/22/2023 9:13 AM Date of : 1970 Admit Type: Outpatient Note Status:Finalized Date of : 1970 Admit Type: Outpatient Age: 52 Room: [facility] 3 Gender: Female Note Status: Finalized Procedure: Colonoscopy Indications: Screening for colorectal malignant neoplasm Providers: Hayde Carrasco MD (Doctor), Yovani Edmond RN Referring MD: Mary Crawford MD (Referring MD) Medicines: Propofol per Anesthesia Complications: No immediate complications. Procedure: Pre-Anesthesia Assessment: - Prior to the procedure, a History and Physicalwas performed, and patient medications, allergies and sensitivities werereviewed. The patient's tolerance of previous anesthesia was reviewed. - The risks and benefits of the procedure and thesedation options and risks were discussed with the patient. All questions wereanswered and informed consent was obtained. - Patient identification and proposed procedurewere verified prior to the procedure by the physician and the nurse. The procedure wasverified in the procedure room. - Pre-procedure physical examination revealed nocontraindications to sedation. After I obtained informed consent, the scope waspassed under direct vision. All instruments were visually inspected immediatelybefore and after removal from the patient to ensure they are fully intact. Throughout the procedure, the patient's bloodpressure, pulse, and oxygen saturations were monitored continuously. The [id number] ([id number]) was introduced through the anus and advanced to the terminalileum. The colonoscopy was performed without difficulty. The patient tolerated theprocedure well. The quality of the bowel preparation was good. The terminal ileum,ileocecal valve, appendiceal orifice, and rectum were photographed. Findings & Specimens: The perianal and digital rectal examinations were normal. The terminal ileum appeared normal. A 6 mm polyp was found in the ascending colon. The polyp was sessile.The polyp was removed with a cold snare. Resection and retrieval were complete. Verification of patientidentification for the specimen was done by the physician and nurse using the patient's name andbirth date. The pathology specimen was placed into Bottle A. A 6 mm polyp was found in the descending colon. The polyp wassessile. The polyp was removed with a cold snare. Resection and retrieval were complete. The pathologyspecimen was placed into Bottle B. Non-bleeding internal hemorrhoids were found during retroflexion. Thehemorrhoids were small. Impression: - The examined portion of the ileum was normal. - One 6 mm polyp in the ascending colon, removedwith a cold snare. Resected and retrieved. - One 6 mm polyp in the descending colon, removedwith a cold snare. Resected and retrieved. - Non-bleeding internal hemorrhoids. Recommendation: - Discharge patient to home. - Await pathology results. - Repeat colonoscopy in 5 years for surveillance. - Return to referring physician. Hayde Carrasco MD 10/22/2023 9:54:17 AM This report has been signed electronically. Mary Crawford MD [facility] documented in this encounter Visit Diagnoses Diagnosis Special screening for malignant neoplasms, colon documented in this encounter Administered Medications Inactive Administered Medications - up to 3 most recent administrations Medication Order MAR Action Action Date Dose Rate Site isolyte-S pH 7.4 infusion Intravenous, at 100 mL/hr, Plasma-LYTE 148, isolyte-S, and isolyte-S pH 7.4 are considered equivalent - including for MAR barcode scanning., CONTINUOUS, Starting on Sun10/22/23 at 0945, Until Sun10/22/23 at 1457, Pre-Op Restarted 10/22/2023 9:51 AM EST Continue from Pre-Op 10/22/2023 9:23 AM EST 100 mL/hr New Bag 10/22/2023 9:18 AM EST 100 mL/hr documented in this encounter Active and Recently Administered Medications Times are shown in EST. Continuous Medication Order 10/20/2023 10/21/2023 10/22/2023 isolyte-S pH 7.4 infusion Intravenous, at 100 mL/hr, Plasma-LYTE 148, isolyte-S, and isolyte-S pH 7.4 are considered equivalent - including for MAR barcode scanning., CONTINUOUS, Starting on Sun10/22/23 at 0945, Until Sun10/22/23 at 1457, Pre-Op 0918 (New Bag - Prov ider: Vinay Torres RN)0923 (Continue from Pre-Op - Provider: Joseline Wilkins CRNA)0950 (Paused - Provider: Joseline Wilkins CRNA - Comment: Switch to gravity)0951 (Restarted - Provider: Joseline Wilkins CRNA) documented in this encounter Care Teams Benefits Manager Relationship Specialty Start Date End Date Mary Crawford MD [address] [place] [address] [place] [address] PCP - General Family Medicine 08/08/23 documented as of this encounter
--- OUTSIDE RECORDS SUMMARY | 2023-12-10 19:38 | External Medical Summary ---
Author Name Unknown Address Unknown Organization K01:[facility] [place] [address] [place] [address] Laboratory Report Ordering Provider Test Date Status JAMARCUS CAIN 07/24/2023 07:31:24 Final Observation Date Value Abnormality Reference (Units ) Status MYCODE SPECIMEN-SST 07/24/2023 07:31:24 Freezing of extracted DNA, whole blood and/or serum. Final Performing Location [facility] - [address] [place] [address]
--- OUTSIDE RECORDS SUMMARY | 2023-12-10 19:38 | External Medical Summary | Summary of Care ---
Author Name Unknown Organization [facility] Address [address] [place] [address] Phone [phone] Care Team Providers Care Oven Tender Name Role Phone Mary Crawford MD Primary Care Provide r Reason for Visit * Reason Onset Date Comments Advice 08/06/2023 Encounter Details Date Type Department Care Team (Late st Contact Info) Description 08/06/2023 Telephone Family Medicine [address] [phone] Mary Crawford MD [address] [place] [address] [place] [phone] Advice Allergies No known active allergiesdocumented as of this encounter (statuses as of 08/27/2023) Medications Medication Sig Dispensed Refills Start Date End Date Status Multiple Vitamin (MULTIVITAMINS) Capsule Take 1 Capsule by mouth in the morning. 0 02/18/2015 Active documented as of this encounter (statuses as of 08/27/2023) Active Problems Problem Noted Date Diagnosed Date Hyperlipidemia LDL goal <100 07/24/2023 Overview: LDL 168 Lumbar radiculitis 04/16/2018 Herniated nucleus pulposus, L5-S1, right 018 documented as of this encounter (statuses as of 08/27/2023) Resolved Problems Problem Noted Date Diagnosed Date Resolved Date Routine medical exam 12/01/2011 019 documented as of this encounter (statuses as of 08/27/2023) Immunizations Name Administration Dates Next Due TDAP [...] on file documented as of this encounter Miscellaneous Notes * Telephone Encounter - Radha Griffith LPN - 08/08/2023 10:43 AM EST This was taken care of in a [employer] message. * Telephone Encounter - Dorota Plasencia [facility] - 08/06/2023 12:08 PM EST No Appointments Available Patient declined appointments?: Yes What Visit Type is needed? Other poss uti If Acute Visit Type is needed, were surrounding clinics offered to patient (Yes/No)? N/A Was patient offered appointments with other available providers (Yes/No)? N/A See Call Details? (Yes or No): Yes Pt sts may have a possible UTI, declined appt would like something prescribed documented in this encounter Plan of Treatment Upcoming Encounters Date Type Department Care Team (Latest Contact Info) Description 10/22/2023 9:30 AM EST Hospital Encounter ENDO [facility], Endoscopy Room [facility] [address] [place] [phone] Leidy Shaw, DO [address] [place] [address] 10/22/2023 9:30 AM EST - 10/22/2023 10:00 AM EST Surgery ENDO [facility], Endoscopy Room [facility] [address] [place] [phone] Leidy Shaw, DO [address] [place] [address] COLONOSCOPY FLEXIBLE PROXIMAL DIAGNOSTIC 06/13/2024 8:20 AM EDT Office Visit Family Medicine [address] [place] [phone] Mary Crawford MD [address] [place] [address] [place] [address] 07/07/2024 9:00 AM EDT Imaging Radiology [address] [place] [address] Scheduled Procedures Name Priority Associated Diagnoses Date/Ti me COLONOSCOPY FLEXIBLE PROXIMAL DIAGNOSTIC Special screening for malignant neoplasms, colon 10/22/2023 9:30 AM EST Health Maintenance Due Date Last Done Comments Hepatitis B (1 of 3 - 3-dose series) 1970 COVID-19 Vaccine (#1) 05/25/1972 Cologuard 11/22/2016 Colonoscopy 11/22/2016 Colorectal Cancer Screening 11/22/2016 Fecal Occult Blood Test 11/22/2016 Sigmoidoscopy 11/22/2016 Zoster Vaccines (1 of 2) 11/22/2021 Influenza Vaccine (FLU shot) (#1) 2023 Depression Screening 06/01/2024 06/01/2023 Mammogram 06/25/2024 06/25/2023, 10/0 02/2022, 06/08/2021, Additional history exists Diabetes Screening 07/24/2026 07/24/2023, 0 05/20/2020, 04/18/2017, Additional history exists Lipid Panel 07/24/2028 07/24/2023, 07/12, 05/20/2020, Additional history exists DTaP,Tdap,and Td Vaccines [...] Not on filedocumented as of this encounter Care Teams Oven Tender Relationship Specialty Start Date End Date Mary Crawford MD [address] [place] [address] [place] [address] PCP - General Family Medicine 08/08/23 documented as of this encounter
--- OUTSIDE RECORDS SUMMARY | 2023-12-10 19:38 | External Medical Summary | Summary of Care ---
Author Name Unknown Organization [facility] Address [address] [place] [address] Phone [phone] Care Team Providers Care Delivery Assistant Name Role Phone Mary Crawford MD Primary Care Provide r Reason for Visit * Reason Onset Date Comments Patient Instructions 10/11/2023 colonoscopy Encounter Details Date Type Department Care Team (Late st Contact Info) Description 10/11/2023 Telephone OR [facility], Operating Room [facility] [address] [place] [phone] Rosa Akins, RN Patient Instructions (colonoscopy) Allergies No known active allergiesdocumented as of this encounter (statuses as of 10/11/2023) Medications Medication Sig Dispensed Refills Start Date End Date Status Multiple Vitamin (MULTIVITAMINS) Capsule Take 1 Capsule by mouth in the morning. 0 02/18/2015 Active documented as of this encounter (statuses as of 10/11/2023) Active Problems Problem Noted Date Diagnosed Date Hyperlipidemia LDL goal <100 07/24/2023 Overview: LDL 168 Lumbar radiculitis 04/16/2018 Herniated nucleus pulposus, L5-S1, right 018 documented as of this encounter (statuses as of 10/11/2023) Resolved Problems Problem Noted Date Diagnosed Date Resolved Date Routine medical exam 12/01/2011 019 documented as of this encounter (statuses as of 10/11/2023) Immunizations Name Administration Dates Next Due TDAP [...] Care Team (Latest Contact Info) Description 10/22/2023 9:45 AM EST Hospital Encounter ENDO [facility], Endoscopy Room [facility] [address] [place] [phone] Hayde Carrasco MD [address] [place] [address] 10/22/2023 9:45 AM EST - 10/22/2023 10:15 AM EST Surgery ENDO [facility], Endoscopy Room [facility] [address] [place] [phone] Hayde Carrasco MD [address] [place] [address] COLONOSCOPY FLEXIBLE PROXIMAL DIAGNOSTIC 06/13/2024 8:20 AM EDT Office Visit Family Medicine [address] [place] [phone] Mary Crawford MD [address] [place] [address] [place] [address] 07/07/2024 9:00 AM EDT Imaging Radiology [address] [place] [phone] Scheduled Procedures Name Priority Associated Diagnoses Date/Ti me COLONOSCOPY FLEXIBLE PROXIMAL DIAGNOSTIC Special screening for malignant neoplasms, colon 10/22/2023 9:45 AM EST Health Maintenance Due Date Last Done Comments Hepatitis B (1 of 3 - 3-dose series) 1970 COVID-19 Vaccine (#1) 05/25/1972 Cologuard 11/22/2016 Colonoscopy 11/22/2016 Colorectal Cancer Screening 11/22/2016 Fecal Occult Blood Test 11/22/2016 Sigmoidoscopy 11/22/2016 Zoster Vaccines (1 of 2) 11/22/2021 Influenza Vaccine (FLU shot) (#1) 2023 Depression Screening 06/01/2024 06/01/2023 Mammogram 06/25/2024 06/25/2023, 02/2022, 06/08/2021, Additional history exists Diabetes Screening [...] filedocumented as of this encounter Care Teams Delivery Assistant Relationship Specialty Start Date End Date Mary Crawford MD [address] [place] [address] [place] [phone] PCP - General Family Medicine 08/08/23 documented as of this encounter
--- OUTSIDE RECORDS SUMMARY | 2023-12-10 19:38 | External Medical Summary ---
Author Name Unknown Address Unknown Organization [id number]:[facility] [place] [address] [place] [address] Laboratory Report Ordering Provider Test Date Status KATHLEEN SERRANO 08/08/2023 15:55:35 Final Observation Date Value Abnormality Reference (Units ) Status Bacteria identified in Specimen by Culture 08/08/2023 15:55:35 [id number]^PROTEUS MIRABILIS Abnormal Final >100,000 colonies/mL Proteus mirabilis Performing Location [facility] [place] [address] [place] [address] Ordering Provider Test Date Status KATHLEEN SERRANO 08/08/2023 15:55:35 Final Observation Date Value Abnormality Reference (Units ) Status Ampicillin 08/08/2023 15:55:35 <=2 Susceptible Final Cefazolin 08/08/2023 15:55:35 <=4 Susceptible Final Cefepime susceptibility 08/08/2023 15:55:35 <=1 Susceptible Final Ceftriaxone suceptibility 08/08/2023 15:55:35 <=1 Susceptible Final Ciprofloxacin 08/08/2023 15:55:35 <=0.25 Susceptible Final Due to serious side effects, the FDA has advised against using Ciprofloxacin to treat uncomplicated UTIs and respiratory tract infections unless there are no alternative treatment options. Gentamicin susceptibility 08/08/2023 15:55:35 <=1 Susc eptible Final Piperacillin + Tazobactamsusceptibility 08/08/2023 15:55:35 <=4 Susceptible Final TMP-SMZ susceptibility 08/08/2023 15:55:35 <=20 Suscept ible Final Test: Culture, Urine, Quanti tative
Specimen Source: Urine, Clean Catch
Specimen Type: Urine
Specimen Date: 08/08/2023 3:55 PM
Result Date: 08/10/2023 1:46 PM
Result Status: Final result
Abnormal: Yes
Resulting Lab: [facility]
[address] [facility] [address]

CULTURE

>100,000 colonies/mL Proteus mirabilis (Abnormal)

SUSCEPTIBILITY

Proteus mirabilis
METHOD MICROBROTH DILUTIONS

AMPICILLIN <=2 Susceptible
CEFAZOLIN <=4 Susceptible
CEFEPIME <=1 Susceptible
CEFTRIAXONE <=1 Susceptible
CIPROFLOXACIN <=0.25 Susceptible [1]
GENTAMICIN <=1 Susceptible
PIPERACILLIN TAZOBACTAM <=4 Susceptible
TRIMETH/SULFAMETHOXAZOLE <=20 Susceptible

[1] Due to serious side effects, the FDA has advised against using
Ciprofloxacin to treat uncomplicated UTIs and respiratory tract infections
unless there are no alternative treatment options.

null Performing Location [facility] [place] [address] [facility] [address] [facility] [address]
--- OUTSIDE RECORDS SUMMARY | 2023-12-10 19:38 | External Medical Summary ---
Author Name Unknown Address Unknown Organization [id number]:LABORATORY [facility] [place] - [address] [facility] [address] Laboratory Report Ordering Provider Test Date Status KATHLEEN SERRANO 08/08/2023 15:55:35 Final Observation Date Value Abnormality Reference (Units ) Status Color of Urine by Auto 08/08/2023 15:55:35 Colorless Colorless, Light Yellow, Yellow, Dark Yellow Final Clarity, Urine 08/08/2023 15:55:35 Clear Clear Final Glucose [Mass/volume] in Urine by Automated test strip 08/08/2023 15:55:35 Negative Negative (mg/dL) Final Bilirubin.total [Presence] in Urine by Automated test strip 08/08/2023 15:55:35 Negative Negative Final Ketones [Mass/volume] in Urine by Automated test strip 08/08/2023 15:55:35 Negative Negative (mg/dL) Final Specific gravity, Urine 08/08/2023 15:55:35 1.009 1.003-1.030 Final Hemoglobin [Presence] in Urine by Automated test strip 08/08/2023 15:55:35 Large Abnormal Negative Final pH, Urine 08/08/2023 15:55:35 6.5 5.0-7.5 (Units) Final Protein [Mass/volume] in Urine by Automated test strip 08/08/2023 15:55:35 Trace Abnormal Negative (mg/dL) Final Urobilinogen [Mass/volume] in Urine by Automated test strip 08/08/2023 15:55:35 Normal Normal (mg/dL) Final Nitrite [Presence] in Urine by Automated test strip 08/08/2023 15:55:35 Negative Negative Final Leukocyte esterase [Presence] in Urine by Automated test strip 08/08/2023 15:55:35 Small Abnormal Negative Final RBC, Urine 08/08/2023 15:55:35 0-2 0-2 (/HPF) Final WBC, Urine 08/08/2023 15:55:35 20-29 Abnormal 0-2 (/HPF) Final Bacteria [#/area] in Urine sediment by Microscopy high power field 08/08/2023 15:55:35 0-25 0-25 (/HPF) Final Performing Location LABORATORY [facility] [place] - [facility] [address] [facility] [address]
--- OUTSIDE RECORDS SUMMARY | 2023-12-10 19:38 | External Medical Summary ---
Author Name Unknown Address Unknown Organization K01:LABORATORY [facility] - [address] [place] [address] Laboratory Report Ordering Provider Test Date Status ROSMERY CHACON 07/24/2023 07:31:24 Final Observation Date Value Abnormality Reference (Units ) Status Hep C Ab 07/24/2023 07:31:24 Negative Negative Final Further HCV quantitative kehinde ting not performed per protocol. Performing Location [facility] - [address] [place] [address]
--- OUTSIDE RECORDS SUMMARY | 2023-12-10 19:38 | External Medical Summary ---
Author Name Unknown Address Unknown Organization K01:[facility] [address] [facility] [place] [address] Laboratory Report Ordering Provider Test Date Status ROSMERY CHACON 07/24/2023 07:31:24 Final Observation Date Value Abnormality Reference (Units ) Status Triglyceride 07/24/2023 07:31:24 146 <=174 ( mg/dL) Final Triglyceride Reference Range s (mg/dL):
<150 Acceptable
150-174 Borderline high
175-499 High
>=500 Very high Cholesterol 07/24/2023 07:31:24 252 Above high normal <200 (mg/dL) Final Total Cholesterol Reference Ranges (mg/dL):
<200 Desirable
200-239 Borderline high
>=240 High HDL 07/24/2023 07:31:24 55 >49 (mg/dL ) Final HDL Cholesterol Reference Ra nges (mg/dL):
>=60 High (Desirable)
<50 Low (Undesirable) For Females
<40 Low (Undesirable) For Males NON-HDL CHOLESTEROL 07/24/2023 07:31:24 197 Above high normal <=159 (mg/dL) Final Non-HDL Cholesterol Referenc e Range (mg/dL):
<100 Target level for high risk ASCVD patient
<130 Optimal for general population
130-159 Near optimal for general population
160-189 Borderline High
190-219 High
>=220 Very High LDL, (calculated) 07/24/2023 07:31:24 168 Above high n ormal <=129 (mg/dL) Final LDL Cholesterol Reference Ra nges (mg/dL):
<70 Target level for high risk ASCVD patient
<100 Optimal for general population
100-129 Near optimal for general population
130-159 Borderline high
160-189 High
>=190 Very high Performing Location LABORATORY [facility] [place] - [address] [facility] [address]
--- OUTSIDE RECORDS SUMMARY | 2023-12-10 19:38 | External Medical Summary | Summary of Care ---
Author Name Unknown Organization [facility] Address [address] [place] [address] Phone [phone] Care Team Providers Care Medical Claims Specialist Name Role Phone Mary Crawford MD Primary Care Provide r Encounter Details Date Type Department Care Team (Late st Contact Info) Description 08/27/2023 Orders Only Outcomes Research Department [address] [place] [address] Nanda Farr CHRA MyCode Research Other*[id number] Allergies No known active allergiesdocumented as of [...] 10/22/2023 9:30 AM EST [facility] [address] [place] [phone] Leidy Shaw, DO [address] [place] [address] 10/22/2023 9:30 AM EST - 10/22/2023 10:00 AM EST Surgery ENDO [facility], Endoscopy Room [facility] [address] [place] [phone] Leidy Shaw, DO [address] [place] [address] COLONOSCOPY FLEXIBLE PROXIMAL DIAGNOSTIC 06/13/2024 8:20 AM EDT Office Visit Family Medicine [facility] [place] [phone] Mary Crawford MD [address] [place] [address] [place] [phone] 07/07/2024 9:00 AM EDT Imaging Radiology [address] [place] [address] Scheduled Orders Name Type Priority Associated Diagnoses Orde r Schedule MYCODE SUBSEQUENT ADULT Lab Routine MyCode Research Other*[id number] Every 6 Months for 2 Occurrences starting 08/27/2023 until 09/15/2024 Scheduled Procedures Name Priority Associated Diagnoses Date/Ti [...] this encounter Visit Diagnoses Diagnosis MyCode Research Other*[id number] Special screening for malignant neoplasms, colon documented in this encounter Care Teams Medical Claims Specialist Relationship Specialty Start Date End Date Mary Crawford MD [address] [place] [address] [place] [address] PCP - General Family Medicine 08/08/23 documented as of this encounter
--- OUTSIDE RECORDS SUMMARY | 2023-12-10 19:38 | External Medical Summary ---
Author Name Unknown Address Unknown Organization K01:[place] [facility] [place] [address] [place] [address] Laboratory Report Ordering Provider Test Date Status ROSMERY CHACON 07/24/2023 07:31:24 Final Based on guidelines from [place] [employer]:
70-99 mg/dL Normal
100-125 mg/dL Pre-diabetes
>125 mg/dL Diabetes, diagnosis requires two abnormal diabetes diagnostic test results Observation Date Value Abnormality Reference (Units ) Status Fasting glucose [Moles/volume] in Serum or Plasma 07/24/2023 07:31:24 98 70-99 (mg/dL) Final Performing Location [facility] [facility] [place] [address] [place] [address]
--- OUTSIDE RECORDS SUMMARY | 2023-12-10 19:38 | External Medical Summary | Summary of Care ---
Author Name Unknown Organization [facility] Address [address] [place] [address] Phone [phone] Care Team Providers Care Loom Inspector Name Role Phone Mary Crawford MD Primary Care Provide r Reason for Visit * Reason Comments Outpatient Testing Encounter Details Date Type Department Care Team (Late st Contact Info) Description 08/08/2023 4:00 PM EST Laboratory Laboratory [address] [place] [phone] [address] [place] [address] Dysuria Allergies No known active allergiesdocumented as of this encounter (statuses as of 08/08/2023) Medications Medication Sig Dispensed Refills Start Date End Date Status Multiple Vitamin (MULTIVITAMINS) Capsule Take 1 Capsule by mouth in the morning. 0 02/18/2015 Active Sulfamethoxazole-Tri methoprim 800-160 MG Oral Tablet (Bactrim DS) Take 1 Tablet by mouth in the morning and 1 Tablet before bedtime. Do all this for 3 days. Until gone. 6 Tablet 0 08/08/2023 08/11/2023 Active documented as of this encounter (statuses as of 08/08/2023) Active Problems Problem Noted Date Diagnosed Date Hyperlipidemia LDL goal <100 07/24/2023 Overview: LDL 168 Lumbar radiculitis 04/16/2018 Herniated nucleus pulposus, L5-S1, right 018 documented as of this encounter (statuses as of 08/08/2023) Resolved Problems Problem Noted Date Diagnosed Date Resolved Date Routine medical exam 12/01/2011 019 documented as of this encounter (statuses as of 08/08/2023) Immunizations Name Administration Dates Next Due TDAP [...] EST Hospital Encounter [facility], Endoscopy Room [facility] [address] [place] [phone] Leidy Shaw, DO [address] [place] [address] 10/22/2023 9:30 AM EST - 10/22/2023 10:00 AM EST Surgery [facility], Endoscopy Room [facility] [address] [place] [phone] Leidy Shaw, DO [address] [place] [address] COLONOSCOPY FLEXIBLE PROXIMAL DIAGNOSTIC 06/13/2024 8:20 AM EDT Office Visit Family Medicine [address] [place] [phone] Mary Crawford MD [address] [place] [address] [place] [address] 07/07/2024 9:00 AM EDT Imaging Radiology [address] [place] [address] Pending Results Name Type Priority Associated Diagnoses Date /Time URINALYSIS, REFLEX TO MICROSCOPIC Lab Routine Dysuria 08/08/2023 3:55 PM EST Scheduled Procedures Name Priority Associated Diagnoses [...] Depression Screening 06/01/2024 06/01/2023 Mammogram 06/25/2024 06/25/2023, 1002/2022, 06/08/2021, Additional history exists Diabetes Screening 07/24/2026 [...] as of this encounter Visit Diagnoses Diagnosis Dysuria Special screening for malignant neoplasms, colon documented in this encounter Care Teams Loom Inspector Relationship Specialty Start Date End Date Mary Crawford MD [address] [place] [address] [place] [phone] PCP - General Family Medicine 08/08/23 documented as of this encounter
--- OUTSIDE RECORDS SUMMARY | 2023-12-10 19:38 | External Medical Summary ---
Author Name Unknown Address Unknown Organization K01:[facility] [place] [address] [place] [address] Laboratory Report Ordering Provider Test Date Status JAMARCUS CAIN 07/24/2023 07:31:24 Final Observation Date Value Abnormality Reference (Units ) Status MYCODE SPECIMEN-SST 07/24/2023 07:31:24 Freezing of extracted DNA, whole blood and/or serum. Final Performing Location [facility]ORY [facility] - [address] [place] [address]
[2023-12-10 20:11] LABS: ANTI-Xa, UFH(UnfractionatedHep 0.67 IU/ml (0.3-0.7)
[2023-12-10] MEDS: ATORVASTATIN 40 MG TAB PO SCH (21:31)
[2023-12-11 06:24] LABS: Hematocrit (blood only) 42.9 % (37.0-47.0); Hemoglobin 14.9 g/dl (12.0-16.0); Mean Corpuscular Hemoglobin 32.1 pg (25.0-34.0); Mean Corpuscular Hgb Conc 34.7 g/dL (32.0-36.0); Mean Corpuscular Volume 92.5 fL (80.0-100.0); Mean Platelet Volume 9.3 fL (9.4-12.4); Platelet Count 256 K/uL (130-400); RDW Coefficient of Variation 12.2 % (11.5-14.5); RDW Standard Deviation 41.8 fL (36.4-46.3); Red Blood Count 4.64 M/uL (4.20-5.40); White Blood Count 10.17 K/ul (4.8-10.8)
[2023-12-11 06:41] LABS: ANTI-Xa, UFH(UnfractionatedHep < 0.10 IU/ml (0.3-0.7)
[2023-12-11 06:46] LABS: Cholesterol 239 mg/dl (0-200); HDL Cholesterol 59 mg/dl; Triglycerides 424 mg/dl (0-150)
[2023-12-11 06:48] LABS: Chol HDL Ratio 4.1 (0-5)
[2023-12-11 06:55] LABS: BUN Creatinine Ratio 21.3 (10-20); Calcium 9.1 mg/dl (8.6-10.3); Creatinine Clr Calc Pharmacy 76.8 ml/min; Est GFR (African American) 86.4 ml/min; Est GFR (Non-African American) 74.5 ml/min; Magnesium 2.1 mg/dl (1.7-2.4); Potassium 3.8 mmol/L (3.5-5.1)
[2023-12-11 07:02] LABS: Estimated Average Glucose 128 mg/dl; Hemoglobin A1C 6.1 % (4.5-5.6)
[2023-12-11] MEDS ORDERED: predniSONE 20 MG TAB PO SCH (09:00)
--- NOTE | 2023-12-11 09:13 | Pre Anesthesia Assessment ---
Date of Service December 11, 2023 Pre Sedation Assessment Vital Signs Temp Pulse Pulse Pulse Resp BP BP 12/11/23 08:37 37.6 C H 68 16 94/68 L 12/11/23 07:16 36.6 C 61 17 95/67 L 12/11/23 03:23 36.6 C 76 18 110/63 12/10/23 22:36 36.8 C 60 18 102/72 12/10/23 22:07 51 L 12/10/23 21:32 102/69 12/10/23 20:32 54 L 12/10/23 20:32 12/10/23 20:25 36.6 C 55 L 16 106/76 12/10/23 18:45 36.6 C 68 20 12/10/23 18:33 12/10/23 18:33 62 20 115/68 12/10/23 14:32 53 L 20 131/80 12/10/23 13:01 117/81 12/10/23 13:01 59 L 18 12/10/23 13:00 61 17 12/10/23 12:48 57 L 12/10/23 12:34 12/10/23 12:30 122/85 12/10/23 12:30 58 L 17 12/10/23 12:23 56 L 18 12/10/23 12:20 12/10/23 12:20 36.6 C 61 17 122/85 Pulse Ox Pulse Ox O2 Del Method O2 Del Method O2 Flow Rate 12/11/23 08:37 99 Room Air 12/11/23 07:16 97 Room Air 12/11/23 03:23 96 Room Air 12/10/23 22:36 95 Room Air 12/10/23 22:07 12/10/23 21:32 12/10/23 20:32 12/10/23 20:32 96 Room Air 12/10/23 20:25 Room Air 12/10/23 18:45 100 Room Air 12/10/23 18:33 99 Room Air 12/10/23 18:33 98 Room Air 12/10/23 14:32 99 Room Air 12/10/23 13:01 12/10/23 13:01 100 Room Air 12/10/23 13:00 98 12/10/23 12:48 12/10/23 12:34 100 Room Air 12/10/23 12:30 12/10/23 12:30 100 12/10/23 12:23 100 12/10/23 12:20 100 Room Air 0 12/10/23 12:20 100 Room Air Cardiovascular RRR, no murmur, no edema Pre-Sedation Airway Assessment Smoking Status: Never smoker Short, Thick Neck: No Thyromental Distance: > or= 3.5 Finger Breadths Oral Cavity: + WNL Mallampati Class: III ASA: ASA3 NPO Status Date of Last Intake of Fluids: 12/10/23 Time of Last Intake of Fluids: 20:00 Date of Last Intake of Solid Food: 12/10/23 Time of Last Intake of Solid Foods: 20:00 Notes The planned sedation has been discussed with the patient. Informed Consent was obtained. I have identified the patient, determined the appropriateness of sedation and have assessed the patient immediately prior to the procedure. All medicine(s) and interventions are by my order.
[2023-12-11] MEDS: niCARdipine HCL INJ 2.5 MG/ML 10 ML AMP ONE (09:37)
[2023-12-11] MEDS: NITROGLYCERIN/D5W 100MCG/ML 20ML SYR ONE (09:38)
[2023-12-11] MEDS: fentaNYL citrate PF 100 MCG/2 ML VIAL ONE (10:00)
[2023-12-11] MEDS: MIDAZOLAM HCL 1 MG/ML 2ML VIAL ONE (10:01)
[2023-12-11] MEDS: HEPARIN (PORCINE) 1000 UNIT/ML 10 ML (CATH LAB USE ONLY) ONE (10:15)
[2023-12-11] MEDS: ASPIRIN 81 MG ECTAB PO SCH (10:15)
[2023-12-11] MEDS: TICAGRELOR 90 MG TAB ONE (10:15)
[2023-12-11] MEDS: OPTIRAY 350 ONE (10:16)
--- NOTE | 2023-12-11 10:33 | Post Anesthesia Assessment ---
Date of Service December 11, 2023 Post Sedation Assessment Vital Signs Temp Pulse Pulse Pulse Resp BP BP 12/11/23 08:37 37.6 C H 68 16 94/68 L 12/11/23 07:16 36.6 C 61 17 95/67 L 12/11/23 03:23 36.6 C 76 18 110/63 12/10/23 22:36 36.8 C 60 18 102/72 12/10/23 22:07 51 L 12/10/23 21:32 102/69 12/10/23 20:32 54 L 12/10/23 20:32 12/10/23 20:25 36.6 C 55 L 16 106/76 12/10/23 18:45 36.6 C 68 20 12/10/23 18:33 12/10/23 18:33 62 20 115/68 12/10/23 14:32 53 L 20 131/80 12/10/23 13:01 117/81 12/10/23 13:01 59 L 18 12/10/23 13:00 61 17 12/10/23 12:48 57 L 12/10/23 12:34 12/10/23 12:30 122/85 12/10/23 12:30 58 L 17 12/10/23 12:23 56 L 18 12/10/23 12:20 12/10/23 12:20 36.6 C 61 17 122/85 Pulse Ox Pulse Ox O2 Del Method O2 Del Method O2 Flow Rate 12/11/23 08:37 99 Room Air 12/11/23 07:16 97 Room Air 12/11/23 03:23 96 Room Air 12/10/23 22:36 95 Room Air 12/10/23 22:07 12/10/23 21:32 12/10/23 20:32 12/10/23 20:32 96 Room Air 12/10/23 20:25 Room Air 12/10/23 18:45 100 Room Air 12/10/23 18:33 99 Room Air 12/10/23 18:33 98 Room Air 12/10/23 14:32 99 Room Air 12/10/23 13:01 12/10/23 13:01 100 Room Air 12/10/23 13:00 98 12/10/23 12:48 12/10/23 12:34 100 Room Air 12/10/23 12:30 12/10/23 12:30 100 12/10/23 12:23 100 12/10/23 12:20 100 Room Air 0 12/10/23 12:20 100 Room Air Recovery Score Activity: Moves 4 extremities Respiration: Deep Breath/Cough Circulation: +/-20% PreAnes Value Consciousness: Fully Awake Oxygen Saturation: > 92% On Room Air Discharge Sedation Level of Care: Fast Track Phase II Post Sedation Plan On clinical assessment, the patient appears to have tolerated the sedation without complications. Patient is recovering as anticipated. Patient will continue to be monitored by nursing and may be discharged when sedation discharge criteria are met per below protocol. Upon Completions of procedure up to 15 minutes continue every 5 minute vital signs and the P.A.R. score; then discharge to a Phase I or Fast Track to Phase II per the following guidelines: * Discharge Patient to appropriate Phase II area if PAR is 8 or greater or return to pre- procedure baseline. The post - procedure orders will be as directed. * If PAR score is less than 8 or not return to pre-procedure baseline then patient will follow Phase I monitoring till PAR is reached for Phase II. The Phase I may be done in procedure room or may call to secure a Phase I area. * If naloxone or flumazenil are used for reversal, hold in Phase I for continued monitoring from when last reversal dose was given for a minimum of 60 minutes or longer pending the nurse and/or physician discretion of patient condition before discharge to Phase II. Please call the Sedation Physician to re-evaluate and complete post-note for discharge to Phase II area. Do NOT discharge from procedure sedation or Phase 1 until post- sedation evaluation note is complete by procedure /sedation MD Sedation Discharge Instructions to be given to the patient at discharge to home.
[2023-12-11] MEDS: MULTIVITAMIN TAB PO SCH (11:13)
--- NOTE | 2023-12-11 12:15 | Cardiology Progress Note ---
Date of Service December 11, 2023 Assessment & Plan (1) NSTEMI (non-ST elevated myocardial infarction): (2) Dyslipidemia: (3) Lumbar radiculopathy: Plan Bedside echocardiogram performed 12/10/2023 at the time of my assessment and interpreted independently with summary as follows: The study was technically adequate. There is normal left ventricular wall thickness. There is a large sized apical, septal, and anteroseptal wall motion abnormality with hypokinesis to akinesis of the segments.There is relative sparing of the basal segments that contract normally. Left ventricular systolic function is severely reduced. The LV Ejection Fraction = 25-30%. There is no LV apical mural thrombus. Diastolic dysfunction, Grade II (pseudonormalization pattern). There is no significant valvular disease. Patient presents with transient chest discomfort, symptoms less than one hour, initially was found to have anterior/lateral ST segment elevation upon arrival of EMS. Symptoms resolved spontaneously after receiving aspirin and reassurance. ST segment elevation has resolved, with age undetermined septal/anterior infarct pattern noted on follow-up serial EKG tracings. Initial high-sensitivity troponin minimally elevated at 271.4 PG /ml--> 2,724.2 pg/ml-->4,924.2 pg/ml-->1,802.9 pg/ml. Bedside echocardiogram consistent with LAD territory injury versus catecholamine induced cardiomyopathy pattern (Takotsubo syndrome). Patient underwent invasive coronary angiography performed with Dr. Walker today. After the diagnostic images were obtained, we confirmed about the case. Patient was found to have a 50% ostial LAD stenosis with hazy appearance, and an adjacent high-grade ostial diagonal 1 stenosis. Given clinical presentation, it is felt the patient likely had experienced an acute plaque rupture with spontaneous recannulization of the vessel explaining abrupt onset symptoms associated with initial ST segment elevation and subsequent resolution of symptoms and improvement in EKG. Dr. Walker and I agreed that it would be in the patient's best interest to proceed with PCI of the LAD, and one drug-eluting stent was placed. The post angiographic result was excellent. Medication plan: Heparin has been discontinued. Continue ASA 81 mg daily, Brilinta started in labeler (which may require insurance prior authorization). No beta pradeep due to bradycardia. No ACEI / ARB due to relative low BP. DC topical nitroglycerin. Pt to remain hospitalized on the telemetry unit A repeat EKG has been ordered and is pending. Advance diet. Lorena Lloyd DO Admission and Anticipated Discharge Date Admission Date: December 10, 2023 Subjective Patient seen in cardiology follow up prior to and post cardiac catheterization. Patient without recurrent chest pain overnight. Telemetry reveals SB in the 50s. Review of Systems Review of Systems: All systems reviewed & are unremarkable except as noted in HPI & below Physical Exam Constitutional: WD/WN, vitals as above Respiratory: normal respiratory effort, lungs clear to auscultation Cardiovascular: RRR, no murmur, no edema Gastrointestinal (Abdomen): normal bowel sounds, soft, nontender, no hepatosplenomegaly Neurologic: PERRL, EOMI, accommodation nl, no face palsy, no dysarthria Results & Data Vital Signs (Past 12 Hours) Vital Signs Temp Pulse Pulse Resp BP BP Pulse Ox 12/11/23 11:04 54 L 16 101/68 98 12/11/23 10:57 36.9 C 62 18 110/69 100 12/11/23 10:49 56 L 17 101/68 98 12/11/23 10:34 36.5 C 57 L 19 103/72 98 12/11/23 10:29 56 L 14 112/71 100 12/11/23 08:37 37.6 C H 68 16 94/68 L 99 12/11/23 07:16 36.6 C 61 17 95/67 L 97 12/11/23 03:23 36.6 C 76 18 110/63 96 O2 Del Method 12/11/23 11:04 Room Air 12/11/23 10:57 Room Air 12/11/23 10:49 Room Air 12/11/23 10:34 Room Air 12/11/23 10:29 Room Air 12/11/23 08:37 Room Air 12/11/23 07:16 Room Air 12/11/23 03:23 Room Air Laboratory Results Cardiac Enzymes 12/10/23 12/10/23 12/10/23 Range/Units 12:30 14:23 19:27 AST 22 (13-39) U/L Troponin I High Sens 271.4 H* 2724.2 H* D 4924.2 H* D (0-14) pg/ml 12/11/23 Range/Units 02:02 AST (13-39) U/L Troponin I High Sens 1802.9 H* D (0-14) pg/ml Coagulation 12/10/23 Range/Units 12:30 PT 10.4 (9.0-12.0) Seconds APTT 23 (21-31) Seconds Lipids 12/11/23 Range/Units 05:56 Triglycerides 424 H (0-150) mg/dl Cholesterol 239 H (0-200) mg/dl HDL Cholesterol 59 mg/dl Cholesterol/HDL Ratio 4.1 (0-5) CBC 12/10/23 12/11/23 Range/Units 12:30 05:56 WBC 9.47 10.17 (4.8-10.8) K/ul RBC 4.39 4.64 (4.20-5.40) M/uL Hgb 14.2 14.9 (12.0-16.0) g/dl Hct 40.4 42.9 (37.0-47.0) % Plt Count 255 256 (130-400) K/uL Neut # (Auto) 6.73 H (1.40-6.50) K/uL Lymph # (Auto) 2.09 (1.20-3.40) K/uL [place] # (Auto) 0.56 (0.11-0.59) K/uL Eos # (Auto) 0.01 (0.00-0.50) K/uL Baso # (Auto) 0.02 (0.00-0.20) K/uL Comprehensive Metabolic Panel 12/10/23 12/11/23 Range/Units 12:30 05:56 Sodium 134 L 137 (136-145) mmol/L Potassium 4.0 3.8 (3.5-5.1) mmol/L Chloride 98 100 (98-107) mmol/L Carbon Dioxide 27 31 (21-32) mmol/L BUN 23 19 (6-23) mg/dl Creatinine 0.83 0.89 (0.6-1.2) mg/dl Glucose 124 H 93 (70-99(Fasting)) mg/dl Calcium 9.1 9.1 (8.6-10.3) mg/dl AST 22 (13-39) U/L ALT 26 (7-52) U/L Alkaline Phosphatase 68 (34-104) U/L Total Protein 7.2 (6.0-8.3) gm/dl Albumin 4.1 (3.4-5.0) gm/dl Intake and Output 12/10/23 12/11/23 12/11/23 22:59 06:59 14:59 Intake Total 100 / 334.933 234.933 / 334.933 Balance 100 / 334.933 234.933 / 334.933 Intake: IV 234.933 / 234.933 Heparin Sodium/Dextrose 25,000 234.933 / 234.933 units In 500 ml @ 800 UNITS/HR 16 mls/hr IV .Q24H [facility] Rx#: [id number] Oral 100 / 100 Other: Other Intake Source NPO # Unmeasured Voids 1 1 Weight 79.4 kg 79 kg Weight Measurement Method Built in [facility] Built in [facility]
--- NOTE | 2023-12-11 12:30 | Hospitalist Progress Note ---
Date of Service December 11, 2023 Assessment & Plan (1) NSTEMI (non-ST elevated myocardial infarction): (2) Dyslipidemia: (3) Lumbar radiculopathy: Plan This is a 51-year-old female with PMH of chronic low back pain who presents with chest pain starting earlier today. 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 NSTEMI Sudden onset CP with EKG changes in V1-V5 ST elevation that resolved after EMS gave aspirin and has not had recurrence of pain Initial HS trop 270 on presentation; up trended to 4000 and down trended Echocardiogram shows large size apical, septal and anteroseptal wall motion abnormality with hypokinesis to akinesis of the segments. EF of 25 to 30% Status post left heart cath with PCI of LAD on December 11, 2023 Started on aspirin and brilinta, will need it for one year. Continue on Lipitor 40mg once a day. will likely benefit from additional of B-pradeep and JOSE LUIS if blood pressure allows; will defer to cardiology Tele monitoring overnight. Dyslipidemia Started on high dose statin as above Lumbar radiculopathy Prednisone stopped for the time being. Encourage PT. Avoid NSAIDs [id number] of 6.1; recommend t lifestyle interventions/low Carb diet DVT Ppx: Lovenox Code status: FULL PCP: Yvette Dispo: Admitted to PCU Time spent evaluating patient, direct bedside care, chart review, placing orders, interpretation of diagnostic studies, discussion with consultants, patient, and family members, as well as other required patient management activities is 50 minutes Please note the above document was generated using voice recognition software. It may contain grammatical, syntax or spelling errors. Any formal questions or concerns about the content, text or information contained within the body of t his dictation should be directly addressed to the provider for clarification Admission and Anticipated Discharge Date Admission Date: December 10, 2023 Subjective Patient seen and examined at bedside. She underwent left heart cath; reports that she is feeling comfortable. No chest pain. No any overnight events Review of Systems Review of Systems: All systems reviewed & are unremarkable except as noted in Subjective Physical Exam Physical Exam: General Appearance: WD/WN, vitals as above, NAD, sitting up in bed, pleasant, conversing easily Respiratory: normal respiratory effort, lungs clear to auscultation, no wheeze, rales, rhonchi. No accessory muscle use Cardiovascular: regular rate, rhythm, no murmur, normal peripheral pulses, no BLE edema. Vessels: no JVD Chest: normal inspection of chest Abdomen/GI: normal bowel sounds, soft, nontender, no hepatosplenomegaly Extremities/Musculoskeletal: no cyanosis or clubbing, extremities motor strength 5/5 Neurologic: PERRL, EOMI, accommodation nl, no face palsy, no dysarthria, CN's II-XI intact bilaterally and moves all extremities Psychiatric: A+Ox3, euthymic affect Skin: no rashes, normal color, warm/dry Results & Data Results & Data Vital Signs (Past 12 Hours) Vital Signs Temp Pulse Pulse Resp BP BP Pulse Ox 12/11/23 11:04 54 L 16 101/68 98 12/11/23 10:57 36.9 C 62 18 110/69 100 12/11/23 10:49 56 L 17 101/68 98 12/11/23 10:34 36.5 C 57 L 19 103/72 98 12/11/23 10:29 56 L 14 112/71 100 12/11/23 08:37 37.6 C H 68 16 94/68 L 99 12/11/23 07:16 36.6 C 61 17 95/67 L 97 12/11/23 03:23 36.6 C 76 18 110/63 96 O2 Del Method 12/11/23 11:04 Room Air 12/11/23 10:57 Room Air 12/11/23 10:49 Room Air 12/11/23 10:34 Room Air 12/11/23 10:29 Room Air 12/11/23 08:37 Room Air 12/11/23 07:16 Room Air 12/11/23 03:23 Room Air
[2023-12-11] MEDS: ASPIRIN 81 MG CHEW ONE (14:41)
[2023-12-11] MEDS: TICAGRELOR 90 MG TAB PO SCH (20:09)
[2023-12-12 07:30] LABS: Hematocrit (blood only) 44.9 % (37.0-47.0); Hemoglobin 15.2 g/dl (12.0-16.0); Mean Corpuscular Hemoglobin 31.2 pg (25.0-34.0); Mean Corpuscular Hgb Conc 33.9 g/dL (32.0-36.0); Mean Corpuscular Volume 92.2 fL (80.0-100.0); Mean Platelet Volume 9.1 fL (9.4-12.4); Platelet Count 241 K/uL (130-400); RDW Coefficient of Variation 12.3 % (11.5-14.5); RDW Standard Deviation 41.3 fL (36.4-46.3); Red Blood Count 4.87 M/uL (4.20-5.40); White Blood Count 8.47 K/ul (4.8-10.8)
[2023-12-12 08:20] LABS: BUN Creatinine Ratio 19.5 (10-20); Calcium 9.2 mg/dl (8.6-10.3); Creatinine Clr Calc Pharmacy 78.4 ml/min; Est GFR (African American) 88.8 ml/min; Est GFR (Non-African American) 76.6 ml/min
[2023-12-12] MEDS: ENOXAPARIN INJ 40 MG/0.4 ML SYR SQ SCH (08:51)
[2023-12-12] MEDS: ASPIRIN 81 MG ECTAB PO SCH (08:51)
--- NOTE | 2023-12-12 12:20 | Cardiology Progress Note ---
Date of Service December 12, 2023 Assessment & Plan (1) NSTEMI (non-ST elevated myocardial infarction): (2) Dyslipidemia: (3) Lumbar radiculopathy: Plan Patient underwent invasive coronary angiography performed by Dr. Walker on 12/11/2023. Patient found to have a hazy 50% stenosis of the proximal LAD involving the first diagonal branch. Presentation suggestive of acute plaque rupture with abrupt onset of chest discomfort and initial ST segment elevation and suspected spontaneous recannulization with resolution of symptoms and improvement in the ST segments. Initial echocardiogram consistent with LAD territory injury pattern versus catecholamine induced cardiomyopathy pattern. Given invasive angiography findings, with presentation suggestive of acute plaque rupture, received a single 3.5 x 28 mm skyler point drug-eluting stent with excellent angiographic result. Patient's right wrist and hand slightly swollen, with no stigmata of embolic phenomenon, no hematoma, and anticipate this will improve spontaneously as she recovers from the cardiac catheterization. Repeat focused echocardiogram performed 12/12/2023 and interpret independently reveals a residual small to moderate-sized septal and anteroseptal wall motion abnormality with hypokinesis of the segments, the overall territory wall motion abnormality has reduced significantly compared to the initial echo performed on 12/10/2023 and there has been an interval improvement in the left ventricular ejection fraction from 20-25% to 50-55%. Patient to continue aspirin enteric-coated, 81 mg daily (lifelong therapy) Patient to continue Brilinta 90 mg twice daily, for 1 year. Patient provided rebate card for the first 30 days. If Brilinta not feasible from a financial standpoint post hospital stay Future considerations include transitioning to clopidogrel with 600 mg clopidogrel load to 12 hours after the final dose of Brilinta. LDL cholesterol 135 mg/dL. Continue atorvastatin 40 mg daily. Given the patient's baseline heart rate in the 50s to 60s, and baseline systolic blood pressure in the low 100s, she is not a candidate for a beta-pradeep, angiotensin receptor pradeep, JOSE LUIS inhibitor, or neprilysin inhibitor. Patient without clinical signs or symptoms of congestive heart failure or volume ove rload. Patient lives approximately [place] from [facility]. She favors virtual cardiac rehab and a referral will be placed. 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 Re commend that she returns to work in 1 week. Post procedure instructions with regards to catheterization site provided in discharge summary. -- Patient stable for discharge from cardiac perspective with medication plan as noted above. --Will plan on cardiology follow-up with our practice within 1 to 4 weeks. Lorena Lloyd DO Admission and Anticipated Discharge Date Admission Date: December 10, 2023 Subjective Patient seen in cardiology follow up. Spouse, Morales, accompanies her. She is up and walking around. Denies chest pain or shortness of breath. Telemetry reveals SR, no arrhythmias. Review of Systems Review of Systems: All systems reviewed & are unremarkable except as noted in HPI & below Physical Exam Constitutional: WD/WN, vitals as above Respiratory: normal respiratory effort, lungs clear to auscultation Cardiovascular: RRR, no murmur, no edema Gastrointestinal (Abdomen): normal bowel sounds, soft, nontender, no hepatosplenomegaly Neurologic: PERRL, EOMI, accommodation nl, no face palsy, no dysarthria Results & Data Vital Signs (Past 12 Hours) Vital Signs Temp Pulse Resp BP Pulse Ox O2 Del Method 12/12/23 11:47 36.3 C L 88 18 89/77 L 98 Room Air 12/12/23 08:13 36.4 C L 73 18 101/77 97 Room Air 12/12/23 03:22 37.7 C H 62 16 96/63 L 96 Room Air Laboratory Results CBC 12/12/23 Range/Units 06:35 WBC 8.47 (4.8-10.8) K/ul RBC 4.87 (4.20-5.40) M/uL Hgb 15.2 (12.0-16.0) g/dl Hct 44.9 (37.0-47.0) % Plt Count 241 (130-400) K/uL Comprehensive Metabolic Panel 12/12/23 Range/Units 06:35 Sodium 135 L (136-145) mmol/L Potassium 4.0 (3.5-5.1) mmol/L Chloride 99 (98-107) mmol/L Carbon Dioxide 28 (21-32) mmol/L BUN 17 (6-23) mg/dl Creatinine 0.87 (0.6-1.2) mg/dl Glucose 105 H (70-99(Fasting)) mg/dl Calcium 9.2 (8.6-10.3) mg/dl Intake and Output 04/02/24 04/03/24 04/03/24 22:59 06:59 14:59 Intake Total 515.067 / 1715.067 400 / 1715.067 550 / 550 Balance 515.067 / 1414.067 400 / 1414.067 550 / 550 Intake: IV 265.067 / 265.067 Heparin Sodium/Dextrose 25,000 265.067 / 265.067 units In 500 ml @ 800 UNITS/HR 16 mls/hr IV .Q24H HANNY Rx#: [id number] Oral 250 / 1450 400 / 1450 550 / 550 Other: # Unmeasured Voids 2 1 3 Weight 78.6 kg Weight Measurement Method Built in [facility] Diagnostic Findings EKG performed 12/12/2023 at 6:15 AM and interpret independently: Sinus rhythm at 70 bpm, age undetermined anterior infarct pattern with noted development of deep T wave inversions in the anterior precordial leads as well as the lateral leads. No residual ST segment elevation.
--- NOTE | 2023-12-12 12:45 | Discharge Summary ---
Date of Service December 12, 2023 Admission HPI Per Admitting Provider This is a 51-year-old female with PMH of chronic low back pain who presents with chest pain starting earlier today. 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 Unsure how long the episode ended, but notes it did not completely resolve until 325 mg aspirin was given by EMS en route to hospital. Since arrival, pain has not recurred. Denies any personal known cardiac disease but notes it in her father and uncle. Long-term smoker over the past 35 years but consistently smoking 8 cigarettes a day. Not on any home medications besides a multivitamin and has been taking a lot of ibuprofen lately due to worsening back pain. Was started on prednisone 20 mg daily by her PCP 5 days ago. Chart review shows history of hyperlipidemia but patient denies it. Has never been on a statin. Denies any fever, chills, headache, chest pain currently, palpitations, shortness of breath, nausea, vomiting, abdominal pain, dysuria, diarrhea or constipation. Significant EKG changes noted with ST elevation in V1-V5 via picture provided from EMS, EKG improved after aspirin administration and by the time EKG was done in ED, ST elevations had resolved with presence of poor R wave progression consistent with undetermined septal/anterior infarct. Initial high-sensitivity troponin of 270 with repeat now pending. ER provider discussed with Dr. Walker, on-call for interventional cardiology, who recommends initiation of IV heparin drip as well as nitro drip. Dr. Lloyd to evaluate in ED, obtain echo and help determine level of care needed with plan for the afternoon now that patient is chest pain-free. Admission Exam Per Admitting Provider General Appearance: WD/WN, vitals as above, NAD, sitting up in bed, pleasant, conversing easily Head: normocephalic, atraumatic Eyes: normal inspection, PERRL, conjunctivae normal, anicteric sclerae ENT: external ear and nose normal, oropharynx normal Neck: normal visual inspection, trachea midline, no thyromegaly Respiratory: normal respiratory effort, lungs clear to auscultation, no wheeze, rales, rhonchi. No accessory muscle use Cardiovascular: regular rate, rhythm, no murmur, normal peripheral pulses, no BLE edema. Vessels: no JVD Chest: normal inspection of chest Abdomen/GI: normal bowel sounds, soft, nontender, no hepatosplenomegaly Extremities/Musculoskeletal: no cyanosis or clubbing, extremities motor strength 5/5 Neurologic: PERRL, EOMI, accommodation nl, no face palsy, no dysarthria, CN's II-XI intact bilaterally and moves all extremities Psychiatric: A+Ox3, euthymic affect Skin: no rashes, normal color, warm/dry Principal Diagnosis NSTEMI Dyslipidemia History of lumbar radiculopathy Discharge Exam General Appearance: WD/WN, vitals as above, NAD, sitting up in bed, pleasant, conversing easily Respiratory: normal respiratory effort, lungs clear to auscultation, no wheeze, rales, rhonchi. No accessory muscle use Cardiovascular: regular rate, rhythm, no murmur, normal peripheral pulses, no BLE edema. Vessels: no JVD Chest: normal inspection of chest Abdomen/GI: normal bowel sounds, soft, nontender, no hepatosplenomegaly Extremities/Musculoskeletal: no cyanosis or clubbing, extremities motor strength 5/5 Neurologic: PERRL, EOMI, accommodation nl, no face palsy, no dysarthria, CN's II-XI intact bilaterally and moves all extremities Psychiatric: A+Ox3, euthymic affect Skin: no rashes, normal color, warm/dry Discharge Data Allergies Allergy/AdvReac Type Severity Reaction Status Date / Time tree and shrub pollen Allergy Unknown Verified 12/29/21 08:10 Consultations 12/10/23 13:35 ED Decision to Admit Stat 12/10/23 14:33 Consult Cardiology Routine Consult Cardiology Routine 12/11/23 10:22 Consult Cardiac Rehabilitation Routine Procedures Performed Operation Date: 12/11/23 09:00 Actual Procedures p Cath, Left with Cors and Vent(Right) - Miguel Angel Walker MD, PhD s Drug Eluting Stent SGl Vessel - Miguel Angel Walker MD, PhD s Ultrasound Vascular Access - Miguel Angel Walker MD, PhD Ordered Studies 12/11/23 06:37 CL Cath Imgs for PACS use only Routine Hospital Course (1) NSTEMI (non-ST elevated myocardial infarction): (2) Dyslipidemia: (3) Lumbar radiculopathy: Plan Per prior attending with addendum: This is a 51-year-old female with PMH of chronic low back pain who presents with chest pain starting earlier today. 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 NSTEMI Sudden onset CP with EKG changes in V1-V5 ST elevation that resolved after EMS gave aspirin and has not had recurrence of pain Initial HS trop 270 on presentation; up trended to 4000 and down trended Echocardiogram shows large size apical, septal and anteroseptal wall motion abnormality with hypokinesis to akinesis of the segments. EF of 25 to 30% Status post left heart cath with PCI of LAD on December 11, 2023 Started on aspirin and brilinta, will need it for one year. Continue on Lipitor 40mg once a day. will likely benefit from additional of B-pradeep and JOSE LUIS if blood pressure allows; will defer to cardiology Tele monitoring overnight. Dyslipidemia Started on high dose statin as above Lumbar radiculopathy Prednisone stopped for the time being. Encourage PT. Avoid NSAIDs [id number] of 6.1; recommend t lifestyle interventions/low Carb diet DVT Ppx: Lovenox Code status: FULL PCP: Yvette Dispo: Admitted to PCU Addendum/12/01: Patient seen and examined at bedside, on room air, comfortable, no shortness of breath with activity per patient.Patient with no chest pain, repeat echo with EF of 50 to 55%. Discussed with cardiology, plan to discharge her on statin and DAPT. Patient's was at bedside. Patient would like to go home today. She is being discharged with following instruction at the point of discharge: Follow-up with your primary care physician within a week time and likely you will need labs CBC/CMP/magnesium/phosphorus. You are started on aspirin and Brilinta, it is very important that you do not miss the doses on these medications. If any concerns or queries, please reach out to your cardiology office. Avoid NSAIDs. You were diagnosed with prediabetes with A1c of 6.1, recommend lifestyle modification/low-carb diet. Repeat A1c in 3 months, follow-up with your PCP office for long-term monitoring/management. Your cardiac medications has been optimized while in the hospital, take them as prescribed. Follow-up with your cardiology in 1 to 4 weeks time, follow-up with cardiac rehab upon discharge. Take your medications as prescribed. Please make sure that you are able to get your medications today by calling your pharmacy before you leave the hospital so that your treatment continuity is not broken. Please note the above document was generated using voice recognition software. It may contain grammatical, syntax or spelling errors. Any formal questions or concerns about the content, text or information contained within the body of this dictation should be directly addressed to the provider for clarification Home Health Attestation I certify that this patient is under my care and that I, or a physicians life enrichment assistant working with me, had a face to-face encounter that meets the home health [id number] encounter requirements with this patient. The encounter with the patient was in whole, or in part, for the following medical condition, which is the primary reason for home health care (list medical condition): I certify that, based on my findings, the following services are medically necessary home health services: My clinical findings support the need for the above services because: Further, I certify that my clinical findings support that this patient is homebound (i.e. absences from home require considerable and taxing effort and are for medical reasons or latter-day services or infrequently or of short duration when for other reasons) because: Certification for Home Health Services: Based on the above findings, I certify that this patient is confined to the home and needs intermittent alf care, physical therapy and/or speech therapy or continues to need occupational therapy. The patient is under my care, and I have initiated the establishment of the plan of care. This patient will be followed by a physician who will periodically review the plan of care. Total Time Total Time Spent Total Time Spent (In Minutes): 45 Discharge Plan Discharge Items Patient Disposition: Home - Self-Care Reason For Visit: CP Discharge Diagnosis: NSTEMI Dyslipidemia History of lumbar radiculopathy Activity: As commented below Non-emergency contact: Primary Care Provider Call non-emergency contact if: you have any medication questions, your symptoms worsen and your temperature is above 101.5 Follow-up/Referrals: Miguel Angel Lloyd, [[employer]] - (The Cardiology office will contact you for a follow up appointment.) Mary Crawford MD [Primary Care Provider] - (Date & Time 12/17/2023 8:20 AM Provider Lucio Heaton MD Department Family Medicine [facility] ) Diet: Heart Healthy [facility] Attending Provider Instructions: Follow-up with your primary care physician within a week time and likely you will need labs CBC/CMP/magnesium/phosphorus. You are started on aspirin and Brilinta, it is very important that you do not miss the doses on these medications. If any concerns or queries, please reach out to your cardiology office. Avoid NSAIDs. You were diagnosed with prediabetes with A1c of 6.1, recommend lifestyle modification/low-carb diet. Repeat A1c in 3 months, follow-up with your PCP office for long-term monitoring/management. Your cardiac medications has been optimized while in the hospital, take them as prescribed. Follow-up with your cardiology in 1 to 4 weeks time, follow-up with cardiac rehab upon discharge. Take your medications as prescribed. Please make sure that you are able to get your medications today by calling your pharmacy before you leave the hospital so that your treatment continuity is not broken. [employer] Provider Instructions: Home Care: * Take your medications exactly as directed. Don't skip doses. * Remember that recovery after a heart attack takes time. Plan to rest for at lease 4-8 weeks while you recover. Then return to normal activity when your doctor says it's okay. * Ask your doctor about joining a heart rehabilitation program. * Tell your doctor if you are feeling depressed. Feelings of sadness are common after a heart attack, but it is important that you speak to someone if you are feeling overwhelmed by these feelings. * If you are having chest pain, call 911 for an ambulance. Do NOT drive yourself to the hospital. * Ask your family members to learn CPR. * Learn to take your own blood pressure and pulse. Keep a record of your results. Ask your doctor when you should seek emergency medical attention. He or she will tell you which blood pressure reading is dangerous. Lifestyle Changes: * Maintain a healthy weight. Get help to lose any extra pounds. * Cut back on salt. * Limit canned, dried, packaged, and fast foods. * Don't add salt to your food. * Season foods with herbs instead of salt when you cook. * Break the smoking habit. Enroll in a stop-smoking program to improve your chances of success. * Limit fatty foods. * Ask your doctor about having your lipid levels checked regularly. * Build up your activity according to your doctor's recommendation. * Ask your doctor when it's okay to resume sexual activity. * Tell your doctor about any erectile dysfunction (ED) medication you are taking. Some ED medications are not safe if you take certain heart medications. * Try to manage stress. Follow Up: It is important for you to keep your follow up appointments with your medical provider. Pending Studies at Discharge: No Stand-Alone Forms: [facility], Work/School Release, Smoking Cessation Medications and DC Order Prescriptions: New Brilinta 90 mg Tablet 90 mg PO BID Qty: 60 0RF atorvastatin 40 mg Tablet 40 mg PO HS Qty: 30 0RF aspirin 81 mg Tablet,Delayed Release (Dr/Ec) 81 mg PO QAM Qty: 30 0RF Continued multivitamin Tablet 1 tab PO DAILY Rx Instructions: unable to verify, otc 12/10/23 Discontinued ibuprofen 200 mg capsule 400 mg PO Q8H PRN (Reason: pain/fever) Rx Instructions: unable to verify, otc 12/10/23 prednisone 20 mg tablet 20 mg PO UD Rx Instructions: 1 tab tid for 3 days, 1 tab bid for 3 days, 1 tab daily for 3 days Discharge Orders: Discharge Order (Routine); Ordered 12/12/23 Ordered By: nAtolin Gastelum/Other Patient Handouts: Prediabetes, 5 Steps for Eating Healthier Admission Data Admit Date/Time: 12/10/23 15:20 Attending Provider: Antolin Langston Admit Provider: Nora Babin Primary Care Provider: Mary Crawford Other Providers: Nora Babin; Miguel Angel Walker; Miguel Angel Lloyd
--- NOTE | 2023-12-12 13:48 | Electrocardiogram Report ---
Test Reason : Blood Pressure : / mmHG Vent. Rate : 049 BPM Atrial Rate : 049 BPM P-R Int : 124 ms QRS Dur : 070 ms QT Int : 412 ms P-R-T Axes : 068 -16 035 degrees QTc Int : 372 ms Sinus bradycardia Low voltage QRS Cannot rule out Anteroseptal infarct , age undetermined Abnormal ECG No previous ECGs available Confirmed by Octavio Swanson ([id number]) on 12/12/2023 1:48:04 PM Referred By: REFERRED SELF Confirmed By:Octavio Swanson
--- NOTE | 2023-12-12 15:11 | Electrocardiogram Report ---
Test Reason : Blood Pressure : / mmHG Vent. Rate : 052 BPM Atrial Rate : 052 BPM P-R Int : 140 ms QRS Dur : 078 ms QT Int : 444 ms P-R-T Axes : 057 -28 050 degrees QTc Int : 412 ms Sinus bradycardia Anterior infarct (cited on or before 10-DEC-2023) Abnormal ECG When compared with ECG of 10-DEC-2023 12:20, (unconfirmed) Questionable change in initial forces of Septal leads Confirmed by Octavio Swanson ([id number]) on 12/12/2023 3:10:59 PM Referred By: REFERRED SELF Confirmed By:Octavio Swanson
--- NOTE | 2023-12-13 11:23 | Cardiac Catheterization ---
ACC Data: [facility] Cardiac Status Clinical evaluation leading to the procedure CAD Presenation: Non STEMI Anginal Classification: CCS IV Heart Failure: NYHA Class: CCS III Cardiogenic Shock within 24 Hours: No Cardiac Arrest within 24 Hours: No Imaging Studies Past 6 Months: Yes Stress Studies Past 6 Months: No STEMI OR Non-STEMI Symptom Onset Date: 12/10/23 Coronary Anatomy Dominant: Right Left Main (% Stenosis): Normal LAD (% Stenosis): Proximal (70% hazy) and Mid (70% hazy) D1 (% Stenosis): Ostial (99% hazy) Circumflex (% Stenosis): Normal OM1 (% Stenosis): Normal L PL1 (% Stenosis): Normal RCA (% Stenosis): Proximal (Less than 30%) R PDA (% Stenosis): Normal R PL1 (% Stenosis): Normal Diagnostic Physicians Name: Miguel Angel Walker MD, PhD Closure Device Percutaneous Entry Location: Radial Closure Device: Radial Band Recommendations: Medical Therapy and/or Counseling and PCI without planned CABG PCI Indication: PCI for high risk Non-ANSELMO Lesion Segment Name: Proximal to mid LAD Culprit Artery: Yes Stenosis Prior to Rx (%): 70% Chronic Total Occlusion: No Pre-Procedure DENNIS Flow: 2 Previously Treated Lesion: No Lesion Complexity: Non-High/Non-C Lesion Length (mm): 22 mm Thrombus Present: Yes Bifurcation Lesion: Yes Guidewire Across Lesion: Yes Intraprocedure Events Significant Disection: No Perforation: No Cardiac Cath Procedure Full Procedure Date December 11, 2023 Pre-Procedure Diagnosis Pre-Procedure Diagnosis: Non STEMI AUC Score AUC Score: 09 Post-Procedure Diagnosis Post-Procedure Diagnosis: Severe CAD and Successful PCI Procedure(s) Performed Procedure(s) Performed: Coronary Angiography and Drug Eluting Stent Director Graphics Miguel Angel Walker MD, PhD Estimated Blood Loss Estimated Blood Loss: 5 cc Medication(s) Medication(s): Fentanyl, Heparin, Lidocaine 1%, Nicardipine, Nitroglycerin and Versed Summary of Findings Patient initially presented with chest pain and EKG and route with ST elevations. However this resolved by arrival to the emergency department and patient had no chest pain. Echocardiogram was initially suggestive of Takotsubo cardiomyopathy. Therefore, with elevated troponin the patient was initially taken to the [facility] to confirm absence of significant coronary disease. Patient was brought to the cardiac catheterization suite where she was shaved and prepped in a sterile fashion. Sedated using IV Versed and fentanyl. Soft tissues of the right wrist were anesthetized using 2 mL of 1% Xylocaine. The right radial artery was accessed with a modified Seldinger technique and a 6 American radial artery glide sheath was placed. Patient was provided anticoagulation with IV heparin and antispasmodics including nicardipine and nitroglycerin. All catheters were advanced and exchanged over a 0.035 J-tip wire. Left coronary angiography in orthogonal views with a 5 [place] 4 diagnostic catheter. Right coronary angiography in orthogonal views with a 5 [place] 4 diagnostic catheter. Diagnostic catheters were removed. After discussion with Dr. Lloyd regarding the highly suspicious LAD lesion and the initial presentation with ST elevations in the ambulance we agreed that this most likely represented an aborted anterior ST elevation PA and that the most prudent course of action would be to undertake PCI. ACT was checked and additional heparin was provided to maintain therapeutic anticoagulation. This was performed throughout the study as needed. A 6 American EBU 3.0 guide catheter was used to engage the left main coronary artery. BMW reversal guidewire was advanced and positioned distally in the LAD. A second BMW universal guidewire was advanced and positioned distally in the first diagonal given the appearance of the ostial portion of that vessel. Predilatation of the LAD lesion was performed using a 3.0 x 15 mm trek balloon up to 14 mera x 2. The balloon was then removed. 3.5 x 28 mm skyler point drug-eluting stent was then delivered to cross the lesion extending from the proximal LAD to the early distal LAD. There it was deployed at 12 mera followed by a second inflation to 16 mera. Balloon was removed and needle loom weaver angiography performed. The diagonal vessel looked good so the BMW universal guidewire in that vessel was removed. The proximal portion of the stent was postdilated using a 3.75 x 12 mm NC romi balloon inflated to 14 mera. The balloon was then removed. The guidewire was removed after needle loom weaver angiography. Final angiographic evaluation was performed. Guide catheter was then removed over the J-wire. The radial artery sheath was removed. Hemostasis was obtained using the radial band. Patient was hemodynamically stable and asymptomatic. She was returned to the recovery area. This ended the case. Coronary angiography findings: [id number]-nsrso-rdjcbpa vessel bifurcating into LAD and circumflex. No angiographically evident disease. EER-zarcm-anlxion and transapical. Proximal segment is normal until just before the first diagonal where there is a lesion which then extends through the mid vessel. That is an eccentric and hazy lesion with up to 70% stenosis. The distal LAD has no disease but flow beyond the LAD lesion is DENNIS II. There is a medium to large caliber first diagonal which has a hazy ostial 99% stenosis. CSs-gfmqg-yjncxrl and nondominant. Travels in the AV groove where the first branch goes to the atrium. Then there is a large branching OM1 and a large posterior lateral branch as the vessel terminates. Branch vessels are tortuous but there is no angiographically evident disease in the circumflex or its br anches. CDJ-xqopa-dwhegzs and dominant vessel. Bifurcates distally into a large PDA and a branching posterolateral. Proximal RCA has diffuse less than 30% stenosis. The mid and distal RCA as well as the branch vessels have no significant coronary disease. Flow is somewhat sluggish distally. PCI of LAD- 0% residual stenosis post PCI DENNIS-3 flow post PCI No evidence of dissection or perforation post PCI The ostium of the diagonal is jailed but flow increased to DENNIS-3 and haziness resolved. Stenosis appears 60 to 70%. Summary: 1. Severe LAD and ostial diagonal disease. This is culprit for initial EKG changes, chest pain, and subsequent elevation in troponin. Correlates with the wall motion abnormalities on echocardiogram. 2. Successful PCI with implantation of a large caliber long drug-eluting stent to the LAD. 3. Dual antiplatelet therapy with aspirin 81 mg daily and Brilinta 90 mg p.o. twice daily is recommended for 1 to 2 years. 4. Initiate guideline directed medical therapy for secondary prevention per primary railroad inspector. 5. Recommend CARDIAC REHAB. Hemodynamics Rest Ao:: 96/75 mmHg Final Ao: 115/75 mmHg LV: Not performed Recommendations Recommendations: Medical Therapy and/or Counseling and PCI without planned CABG Radiation Exposure (mGy) 1591 mGy, fluoroscopy time 13.9 minutes Contrast (mls) 200 mL Anesthesia 2 mg Versed, 50 mcg fentanyl IV. Start 0923, and 1017 Procedural Complication(s) None Disposition [facility] I attest to the content of the Intraoperative Record and any orders documented therein. Any exceptions are noted below. [facility] [place] Codes Cardiac Catheterization Procedure 1: Cardiovascular Cath Procedures: 53167 Coronaries Moderate Sedation Procedure 1: Sedation/Anesthesia: 32895 Mod Sedation by the same physician;Init15 Min Child Age 5 & Up (Initial 15 min, start 09) Procedure 2: Sedation/Anesthesia: 93958 Mod Sedation by the same physician; Ea [id number] Minutes (Additional 39 min, End 1017) Stenting Procedure 1: Cardiovascular Stent Procedures: 06580 Perc transluminal revascularization of acute sub/total occl, aMI (LAD) PG Care Time/CCT Total # of Minutes Spent Total Time Spent with Patient: Total time spent is greater than 50% in coordination of care (as documented) at patient's floor/unit and/or counseling patient:
--- NOTE | 2023-12-14 18:54 | Electrocardiogram Report ---
Test Reason : Blood Pressure : / mmHG Vent. Rate : 058 BPM Atrial Rate : 058 BPM P-R Int : 144 ms QRS Dur : 084 ms QT Int : 456 ms P-R-T Axes : 062 -10 152 degrees QTc Int : 447 ms Sinus bradycardia Abnormal ECG When compared with ECG of 10-DEC-2023 15:45, (unconfirmed) T wave inversion now evident in Anterolateral leads Confirmed by Octavio Swanson ([id number]) on 12/14/2023 6:54:24 PM Referred By: REFERRED SELF Confirmed By:Octavio Swanson
--- NOTE | 2023-12-15 00:24 | Electrocardiogram Report ---
Test Reason : Blood Pressure : / mmHG Vent. Rate : 070 BPM Atrial Rate : 070 BPM P-R Int : 138 ms QRS Dur : 078 ms QT Int : 458 ms P-R-T Axes : 058 025 145 degrees QTc Int : 494 ms Normal sinus rhythm Anterior infarct , age undetermined T wave abnormality, consider lateral ischemia Abnormal ECG When compared with ECG of 11-DEC-2023 12:20, (unconfirmed) No significant change was found Confirmed by Octavio Swanson ([id number]) on 12/15/2023 12:23:45 AM Referred By: REFERRED SELF Confirmed By:Octavio Swanson
== END 2023-12-12 13:49 | disposition home or self-care (01) | DRG 322 ==
LOC: ED 12:17 → EDINP 15:20 → SUATTDRO 15:20 → 2E 20:06